=== PATIENT | female | born 1990 | race Caucasian/White ===

== ENCOUNTER → 2017-12-18 14:41 | Outpatient (CLI) | payer OTHER, SELFPAY ==
[2017-12-18 16:42] LABS: Absolute Lymphocyte Count 1.86 X10^3/ul (0.83-4.51); Absolute Neutrophil Count 6.4 X10^3/uL (2.0-7.7); Basophil# 0.03 X10^3/uL; Basophil% 0.3 % (0-1); Eosinophil# 0.14 X10^3/uL; Eosinophils% 1.5 % (0-5); Hematocrit 39.1 % (37-47); Hemoglobin 12.9 g/dl (12.0-15.0); Lymphocyte # 1.86 X10^3/ul (4.0); Lymphocyte % 20.5 % (19-41); Mean Corpuscular Hgb 27.3 pg (27.0-32.0); Mean Corpuscular Volume 82.7 fL (81-99); Mean Platelet Vol. 9.6 fl (6.2-12.0); Monocyte# 0.68 X10^3/uL; Monocyte% 7.5 % (0-10); Neutrophil # 6.35 X10^3/uL (2.7-7.7); Neutrophil % 69.9 % (47-70); POSITIVE COUNT NO; POSITIVE DIFFERENTIAL NO; POSITIVE MORPHOLOGY NO; Platelet Count 312 K/mm3 (150-450); RBC Distribution Width CV 13.5 % (11.6-14.6); RBC Distribution Width SD 39.9 fl (35.1-43.9); Red Blood Count 4.73 M/mm3 (4.2-5.4); White Blood Count 9.1 K/mm3 (4.4-11.0)
[2017-12-18 16:50] LABS: Color, Urine Yellow (Yellow); Glucose, Dipstick Normal (Normal); Ketone-Dipstick Negative (Negative); Leukocyte Esterase-Dipstick 25 /ul (Negative); Nitrite-Dipstick Negative (Negative); Occult Blood-Urine 25 /ul (Negative); Protein-Dipstick Negative (Negative); Specific Gravity, Urine 1.025 (1.002-1.030); Urine Bilirubin Dipstick Negative (Negative); Urine Clarity Cloudy (Clear); Urine Urobilinogen Normal (Normal)
[2017-12-18 16:53] LABS: Amphetamine Urine VISTA NEGATIVE (<1000 ng/mL); Barbiturate Urine VISTA NEGATIVE (< 200 ng/mL); Benzodiazepine Urine VISTA NEGATIVE (< 200 ng/mL); Cocaine Urine VISTA NEGATIVE (< 300 ng/mL); Ecstacy Urine VISTA NEGATIVE (< 500 ng/mL); Methadone Urine VISTA NEGATIVE (< 300 ng/mL); PCP Urine VISTA NEGATIVE (< 25 ng/mL); THC Urine VISTA NEGATIVE (< 50 ng/mL); Vista UDS pH Range 5
[2017-12-18 17:03] LABS: Thyroid Stim Hormone (TSH) 0.11 uIU/mL (0.358-3.74)
[2017-12-19 10:46] LABS: Free T3 3.5 pg/mL (2.18-3.98); T4 Free Direct 1.28 ng/dL (0.76-1.46)
[2017-12-19 11:33] LABS: HIV - WCH Non-Reactive (Nonreactive); Rubella IgG 477.6 IU/mL
[2017-12-20 12:25] LABS: HEPATITIS B SURFACE AG Negative (Negative); Hep C Antibodies 0.5 s/co ratio (0.0-0.9)
[2017-12-21 03:56] LABS: Prenatal RPR NONREACTIVE (NONREACTIVE)
== END ==
PROVIDERS: Visit Provider Obstetrics & Gynecology
DX: Z34.81 Encounter for supervision of other normal pregnancy, first trimester (principal)
CPT/HCPCS: 36415; 80307; 81002; 84439; 84443; 84481; 85025; 86703; 86762; 86803; 87340

== ENCOUNTER → 2018-04-23 16:20 | Outpatient (CLI) | payer OTHER, SELFPAY ==
--- NOTE | 2018-04-23 16:20 | DT_ITS ---
This patient was seen during an EMR downtime April 22, 2018 - April 29, 2018. This patient may have a combination of paper and electronic documentation or all paper documentation. All documentation is viewable within the e-chart portion of [facility] for each patient visit.
--- NOTE | 2018-04-23 16:20 | DT_ITS ---
This patient was seen during an EMR downtime April 22, 2018 - April 29, 2018. This patient may have a combination of paper and electronic documentation or all paper documentation. All documentation is viewable within the e-chart portion of [facility] for each patient visit.
[2018-04-28 18:55] LABS: Glucose Challenge Gest 1H 50g 102 mg/dL (70-140)
[2018-04-28 19:06] LABS: Hematocrit 34.7 % (37-47); Hemoglobin 11.2 g/dl (12.0-15.0); Mean Corp Hgb Conc 32.3 g/gl (32-36); Mean Corpuscular Hgb 27.3 pg (27.0-32.0); Mean Corpuscular Volume 84.4 fL (81-99); Mean Platelet Vol. 9.1 fl (6.2-12.0); Platelet Count 264 K/mm3 (150-450); RBC Distribution Width CV 13.6 % (11.6-14.6); RBC Distribution Width SD 41.8 fl (35.1-43.9); Red Blood Count 4.11 M/mm3 (4.2-5.4); Scan Indicated on CBC? Y/N NO
== END ==
PROVIDERS: Visit Provider Obstetrics & Gynecology
DX: Z34.83 Encounter for supervision of other normal pregnancy, third trimester (principal)
CPT/HCPCS: 36415; 82950; 85027

== ENCOUNTER → 2018-06-18 18:45 | Outpatient (CLI) | payer OTHER, SELFPAY ==
[2018-06-18 20:56] LABS: Group B Strep DNA By PCR Negative (Negative); Internal Control PASS; Probe Check PASS; Specimen Processing Control PASS
== END ==
PROVIDERS: Obstetrics & Gynecology; Visit Provider Obstetrics & Gynecology
DX: Z36.85 Encounter for antenatal screening for Streptococcus B (principal)
CPT/HCPCS: 87081; 87653

== ENCOUNTER 2018-06-21 16:00 | Outpatient (CLI) | payer OTHER, SELFPAY ==
[2018-06-21 16:36] VITALS: BMI 43.4
--- NOTE | 2018-06-21 23:55 | OB.TRI.NOTE ---
- Problem List (1) 36 weeks gestation of Status: Acute History of Present Illness Date of Service: 06/21/18 Was patient seen by the physician?: No Reason For Visit: R/O LABOR Final RAQUEL: 07/16/18 Gestational age: 36 Weeks and 3 Days History of Present Illness: 27yo at 36 3/7wga Allergies No Known Allergies Allergy (Verified 06/21/18 16:37) Physical Exam Vitals: avss NST - FHR Rate Baby A Baseline: 120 Variability:: Moderate Accelerations:: 15 x 15 Decelerations:: None NST Reactive:: Yes FHR Category:: Category I Uterine Activity:: 2/10 min Impression/Plan Reactive NST Dx Z34.83 d/c home
== END 2018-06-21 16:55 | disposition home or self-care (01) ==
LOC: WPOUT 16:01 → WP 16:02
PROVIDERS: Visit Provider Obstetrics & Gynecology
DX: Z34.83 Encounter for supervision of other normal pregnancy, third trimester (principal); Z3A.36 36 weeks gestation of pregnancy
CPT/HCPCS: 59025; 59050; 99218; G0378

== ENCOUNTER 2018-07-09 09:40 | Inpatient (IN) | payer OTHER, SELFPAY ==
[2018-07-02 13:20] VITALS: BMI 43.6
[2018-07-09] VITALS (18 sets, daily range): BP systolic 101–135; BP diastolic 54–80; PULSE 59–86; RESP 16–18; TEMP 36.2–36.5; O2SAT 96–100
[2018-07-09] MEDS: Lactated Ringers 1,000 ML 999 ML IV (10:45)
[2018-07-09 11:21] LABS: Absolute Lymphocyte Count 2.06 X10^3/ul (0.83-4.51); Absolute Neutrophil Count 7.6 X10^3/uL (2.0-7.7); Basophil# 0.02 X10^3/uL; Basophil% 0.2 % (0-1); Eosinophil# 0.03 X10^3/uL; Eosinophils% 0.3 % (0-5); Hematocrit 35.1 % (37-47); Hemoglobin 11.2 g/dl (12.0-15.0); Lymphocyte # 2.06 X10^3/ul (4.0); Lymphocyte % 19.6 % (19-41); Mean Corp Hgb Conc 31.9 g/gl (32-36); Mean Corpuscular Hgb 26.6 pg (27.0-32.0); Mean Corpuscular Volume 83.4 fL (81-99); Mean Platelet Vol. 9.4 fl (6.2-12.0); Monocyte# 0.79 X10^3/uL; Monocyte% 7.5 % (0-10); Neutrophil # 7.55 X10^3/uL (2.7-7.7); POSITIVE COUNT NO; POSITIVE DIFFERENTIAL NO; POSITIVE MORPHOLOGY NO; Platelet Count 229 K/mm3 (150-450); RBC Distribution Width CV 13.9 % (11.6-14.6); RBC Distribution Width SD 42.1 fl (35.1-43.9); Red Blood Count 4.21 M/mm3 (4.2-5.4); White Blood Count 10.5 K/mm3 (4.4-11.0)
[2018-07-09] MEDS: Lactated Ringers 1,000 ML 150 ML IV (11:30)
[2018-07-09 11:32] LABS: International Normalized Ratio 0.9; Partial Thromboplast Time 25.7 Seconds (24.1-36.2); Prothrombin Time (Protime)PT. 12.5 SECONDS (11.7-14.9)
[2018-07-09] MEDS: Sodium Citrate/Citric Acid 30 ML UDC PO (11:57)
--- NOTE | 2018-07-09 11:58 | PCM.DCCSEC ---
Discharge Diet: No Restrictions Discharge Activity: May not drive while taking narcotic pain medications., May Shower, May Take a Tub Bath May resume sexual activity in: 4-6 weeks Lifting Restrictions: 20 pounds Additional Activity Instructions:: Nothing in the vagina for 4-6 weeks. You may return to work/school in 6 weeks. Change Dressing in (Days):: 4 Remove Dressing in (days):: 4 Cleanse incision/area with: Soap & Water, Keep Dressing Clean & Dry Additional Instructions: If you experience any of the following, contact your healthcare provider. Bleeding that soaks a pad every hour for 2 hours Fever 100.4 or higher Unrelieved incision or abdominal pain Swelling, redness, discharge or bleeding from your incision Problems urinating (including inability to urinate or burning while urinating). Visual changes Severe headache Flu-like symptoms Pain or redness in one of both of your breasts Pain, warmth, tenderness or swelling in your legs, especially the calf area Frequent nausea and vomiting Symptoms of depression or anxiety If you experience any of the following, call 911 or go to the nearest Emergency Room. Chest pain Problems breathing Seizure activity Partial or complete paralysis of a body part, slurred speech, weakness or drooping of the face, or a sudden inability to walk or hold your balance Allergies/Adverse Reactions: Allergies No Known Allergies Allergy (Verified 06/21/18 16:37) Medications to take at Discharge Vits [Prenatabs FA] 1 tablet PO DAILY 06/21/18 Docusate Sodium [Colace] 100 mg PO BID PRN #30 cap 07/09/18 Naproxen [Naprosyn] 250 - 500 mg PO BID PRN PRN #30 tab 07/09/18 The following prescriptions were given: Naproxen [Naprosyn] 250 - 500 mg PO BID PRN PRN #30 tab PRN Reason: Mild-Mod Pain (-03/28) Docusate Sodium [Colace] 100 mg PO BID PRN #30 cap PRN Reason: Constipation Follow-Up: Call to make an appointment with your doctor for an incision check in 1-2 weeks. You will also need a 6 week post- follow up appointment. Test results from this visit will be discussed in further detail at your follow-up appointment, if applicable. Please Follow Up With: Dianne Duncan MD - [phone] When: Call to make an appointment for an incision check in 2 weeks. Primary Care Physician: Niko Gilliam [Primary Care Provider] -
[2018-07-09] MEDS: Oxytocin 30 units/NS 500 ml 30 UNITS/500 ML IV.SOLN 167 UNITS IV (12:24)
[2018-07-09] MEDS: Ketorolac 30 MG/ML Syringe IV ×3 (12:49→23:58)
[2018-07-09] MEDS: Lactated Ringers 1,000 ML 100 ML IV ×2 (14:01→23:57)
--- NOTE | 2018-07-09 14:24 | NURSING ---
Bedside shift report given to Roseanna Wheatley RN. She will assume care of patient at this time.
--- NOTE | 2018-07-09 15:45 | PLAC_PTH ---
PATIENT: CARLOS SKY LOC: [facility] U#:[id number] AGE/SX: 27/F ROOM: WP005 RE07/09/[address]: Dr. Dianne Duncan MD : 1990 BED: 1 DIS: 07/12/2018 SPEC #: [id number] RECD: 07/09/18 15:55 STATUS: CARMEN RERamón #: [id number] BRIDGET: 07/09/18 15:[address]: Dianne Duncan DEPT: SURGICAL PATHOLOGY RECD BY: Pablo Gilliam ENTERED: 07/10/18 10:01 SP TYPE: PLACENTA OTHR DR: Dr. Niko Gilliam MD Tissues: Placenta, NOS Procedures: Surgery Specimen Level V HEADER OPERATION: Primary section PRE-OP DIAGNOSIS: Breech TISSUE SUBMITTED: Placenta MICROSCOPIC DIAGNOSIS Placenta: Placental disc - third trimester placenta (380 gm). - Increased calcifications, intervillous and perivillous fibrin deposition in peripheral portion of the placenta. Membranes - no pathologic diagnosis. Umbilical cord - three blood vessels and no pathologic diagnosis. SJ:latonia 07/11/18 MICROSCOPIC DESCRIPTION Slides are reviewed. GROSS DESCRIPTION SPECIMEN: PLACENTA / CLINICAL INFORMATION: A. Weight: 2.996 kg B. Gestational Age: 39 weeks C. Sex: Female PLACENTAL WEIGHT (POST FIXATION): 380 gm PLACENTAL DIMENSIONS: 17 x 16 x 3 cm PLACENTAL SHAPE: Usual ovoid PLACENTAL WEIGHT FOR GESTATIONAL AGE: Within 10-99th percentile MEMBRANES - Present A. Insertion: Marginal B. Site of rupture from edge: At edge of placental disc C. Color of membrane: Wellington-duarte D. Abnormalities: None UMBILICAL CORD - Present A. Color: [place]-duarte B. Insertion: Slightly eccentric C. Length: 12 cm D. Diameter: 1.2 cm E. Number of vessels: Three F. Abnormalities: None PLACENTAL DISC - Present A. Color of surface: Wellington-duarte B. surface abnormalities: None C. Maternal cotyledons: Intact with minimal tears D. Attached retro placental clot: No clot E. Cut surface: Dark red and spongy F. Lesions: None G. Separate clot: Absent SECTIONS SUBMITTED: 1. Membrane roll and umbilical cord ( end notched) 2. Placental disc, and maternal surfaces 3. Placental disc, and maternal surfaces 4. Placental disc, and maternal surfaces, peripheral portion placenta AM:latonia 07/10/18 TC:5 CPT: 91238
--- NOTE | 2018-07-09 17:59 | OP.PCM_ITS ---
Operative Report Date of Procedure: 07/09/18 PROCEDURE: Primary C section. 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 Bright viable female in breech presentation. Apgars 9/9, Baby weight: 7# 2 oz There were normal appearing fallopian tubes and ovaries bilaterally. The uterus was septate, not bicornuate. PATH: Routine cord blood for typing collected. Placenta to be sent. Short umbilical cord noted. Narrative account: After the risks, benefits and alternatives of the procedure were reviewed with the patient, informed consent was obtained. The patient was taken to the Operating room with an IV running, and placed in a seated position on the operating table for placement of the spinal. Once the spinal had been administered, she was briefly frog-legged for Grissom catheter placement, and then repositioned to dorsal supine position with leftward displacement of the uterus, and prepped and draped in the usual sterile fashion. Once the spinal was deemed adequate, a Pfannenstiel skin incision was created using the knife . The incision was carried down to the rectus fascia using the knife. The fascia was nicked in the midline. The fascial incision was extended bilaterally using curved Quiles scissors. The superior aspect of the fascial incision was grasped with Marilu clamps and tented up and the underlying rectus abdominal muscles were dissected free. In a similar manner, the inferior aspect of the facial incision was grasped with Marilu clamps tented up and the underlying rectus abdominal muscles were dissected free. The rectus abdominis muscles were in the midline and the peritoneum was identified and entered by blunt dissection high in the incision. The peritoneum was stretched laterally and a bladder blade was inserted. A bladder flap was created along the lower uterine segment with Metzenbaum scissors . The uterine incision was then created using Metzenbaum scissors. The operators fingertips were used to extend the uterine incision by blunt dissection in a caudad- cephalad orientation . Clear fluid was noted at amniotomy. The breech was then delivered atraumatically through the incision up to the level of the shoulders. The arms were reduced, and the VTX delivered by maintaining nuchal flexion. The OP and nares were bulb suctioned on the abdomen. The cord clamped x two and cut. A short umbilical cord was noted. And the infant was handed off to the nurse awaiting delivery after briefly showing her to her parents. The baby had a spontaneous, vigorous cry. A segment of the umbilical cord was clamped off for later cord blood collection for typing. The placenta was then delivered. The uterus was exteriorized and cleared of clots and debris . A this septum was noted in the fundus, and a heart shaped fundus was noted. The uterine incision was repaired with 1 Vicryl in a running locked fashion. A second imbricating layer was then placed, using 1 Monocryl in running nonlocked fashion. Bovie cautery was used to treat any bleeding areas . Several interrupted stitches and figure of eight stitches were placed at the R uterine angle for bleeding at this location. Excellent hemostasis was then noted. At this point the uterus was returned to the abdominal cavity. The gutters were cleared of clots and debris and the incision at the uterus was inspected. Radha was applied along the entire incision for continued hemostasis. Excellent hemostasis was noted. The peritoneal edges were reapproximated in the midline with interrupted stitches of 1 Vicryl. Radha was applied to this layer. Excellent hemostasis was noted at the subfascial space Radha was dusted over this layer as well. The fascia was closed in a running nonlocked fashion with a Stratofix. The Subcutaneous fatty tissue was Bovie cauterized as needed for hemostasis. Radha was liberally dusted at this layer to prevent seroma formation. This layer was then reapproximated in a single layer closure of running 3-0 Vicryl to eliminate space. The skin edges were closed in a Subcuticular stitch of 4-0 Monocryl. The incision was cleansed. Cavilon, Steristrips, and Mepilex dressing were applied to the skin . The patient was then transferred to the recovery room bed in stable condition after tolerating the procedure well. Sponge, lap, needle and instrument counts correct times two. Medications given preop and intraoperatively included: Ancef given wafer production worker to the operating room. The patient also received Pitocin given IV after cord clamp , and Toradol 30 mg IV times one. For a complete listing of medications given preop and intraoperatively, please see the anesthesia record.
[2018-07-10] VITALS (11 sets, daily range): BP systolic 110–137; BP diastolic 54–77; PULSE 69–97; RESP 16–18; TEMP 36.3–36.8; O2SAT 96–100
[2018-07-10 05:10] LABS: Hematocrit 29.6 % (37-47); Hemoglobin 9.5 g/dl (12.0-15.0); Mean Corp Hgb Conc 32.1 g/gl (32-36); Mean Corpuscular Hgb 27.1 pg (27.0-32.0); Mean Corpuscular Volume 84.3 fL (81-99); Mean Platelet Vol. 9.1 fl (6.2-12.0); Platelet Count 196 K/mm3 (150-450); RBC Distribution Width CV 13.9 % (11.6-14.6); RBC Distribution Width SD 41.1 fl (35.1-43.9); Red Blood Count 3.51 M/mm3 (4.2-5.4); White Blood Count 12.3 K/mm3 (4.4-11.0)
[2018-07-10 05:39] LABS: Scan Indicated on CBC? Y/N NO
[2018-07-10] MEDS: Ketorolac 30 MG/ML Syringe IV ×3 (06:01→18:12)
--- NOTE | 2018-07-10 08:11 | PCM.PN.OB ---
Subjective: POD#1 Primary C/S 39 wk Breech, Septate uterus Doing well. breast feeding and using nipple robb for flat nipples. Pain control adequate No concerns voiced. Objective: Lying in bed, NAD. holding baby skin to skin on couch. Grissom with copious clear yellow urine noted. - Physical Exam General: Alert, Oriented x3, Cooperative, No apparent distress HEENT: Atraumatic Neck: Supple Abdomen: Soft - Fundus firm, tender c/w postop status, approx 1 cm inferior to umbilicus Skin: Incision - CDI. Mepilex dry and intact. no shadow drainage noted. Neurological: Cranial nerves II-XII grossly intact Psych/Mental Status: Normal Affect Vital Signs Temp Pulse Resp BP Pulse Ox 97.9 F 80 16 120/57 L 98 07/10/18 04:30 07/10/18 06:30 07/10/18 06:30 07/10/18 04:30 07/10/18 06:30 Oxygen Delivery Method Room Air Weight: 97.976 kg Body Mass Index (BMI) 43.6 Intake and Output for Last 24 Hours 07/08/18 07/09/18 07/10/18 23:59 23:59 23:59 Intake Total 3662 / 3662 1279 / 1279 Output Total 900 / 900 1600 / 1600 Balance 2762 / 2762 -321 / -321 Laboratory Tests Past 24 Hrs 07/09/18 07/09/18 07/09/18 11:05 11:05 11:15 WBC 10.5 RBC 4.21 Hgb 11.2 L Hct 35.1 L MCV 83.4 MCH 26.6 L MCHC 31.9 L RDW 13.9 RDW Differential 42.1 Plt Count 229 MPV 9.4 Immature Gran % (Auto) 0.400 Neut % (Auto) 72.0 H Lymph % (Auto) 19.6 [place] % (Auto) 7.5 Eos % (Auto) 0.3 Baso % (Auto) 0.2 Absolute Neuts (auto) 7.6 Absolute Lymphs (auto) 2.06 Total Counted Not Reportable PT 12.5 INR 0.9 APTT 25.7 Blood Type O POSITIVE Antibody Screen NEGATIVE 07/10/18 04:56 WBC 12.3 H RBC 3.51 L Hgb 9.5 L Hct 29.6 L MCV 84.3 MCH 27.1 MCHC 32.1 RDW 13.9 RDW Differential 41.1 Plt Count 196 MPV 9.1 Immature Gran % (Auto) Neut % (Auto) Lymph % (Auto) [place] % (Auto) Eos % (Auto) Baso % (Auto) Absolute Neuts (auto) Absolute Lymphs (auto) Total Counted PT INR APTT Blood Type Antibody Screen Medical Necessity - Tobacco Use Smoking Status: Never smoker Assessment/Plan 39 wk POD #1 C/S breech presentation, Septate uterus / partial bicornuate Stable postop Inc diet and activity as tolerated. S/L IV for continue Toradol today. Begin po meds. May shower. D/C Grissom for voiding trial. support prn. continue routine care #2 Postop acute blood loss anemia VSS Ferrous gluconate bid
[2018-07-10] MEDS: 0.9% Saline Lock 10 ML Syringe IV ×3 (09:40→18:12)
[2018-07-10] MEDS: Prenatal Vits Tablet 1 TABLET PO (12:23)
[2018-07-10] MEDS: Ferrous Gluconate 325 MG Tablet PO (17:05)
[2018-07-11] MEDS: Ketorolac 30 MG/ML Syringe IV ×2 (00:04→05:49)
[2018-07-11] MEDS: 0.9% Saline Lock 10 ML Syringe IV ×2 (00:05→05:49)
[2018-07-11 02:00] VITALS: PULSE 84; RESP 17; TEMP 37.2
[2018-07-11] MEDS: Acetaminophen 500 MG Tablet 1000 MG PO ×2 (02:59→15:27)
[2018-07-11 08:00] VITALS: BP 119/81; PULSE 82; RESP 18; TEMP 36.6; O2SAT 97
--- NOTE | 2018-07-11 08:16 | PCM.PN.OB ---
Subjective: POD#2 primary C/S BREECH 39 wk, Uterine malformation Doing well. milk is in and able to pump some. Baby nursing. Plans to stay today. support prn. (flat nipples, and baby not latching well yet ) Minimal bleeding. Pain control adequate and able to rest well last night. - Physical Exam General: Alert, Oriented x3, Cooperative, No apparent distress HEENT: Atraumatic Neck: Supple Abdomen: Soft - Fundus firm NT at umbilicus Skin: Incision - CDI. Mepilex dressing in place, no shadow drainage Neurological: Cranial nerves II-XII grossly intact Psych/Mental Status: Normal Affect Vital Signs Temp Pulse Resp BP Pulse Ox 98.9 F 84 17 120/77 97 07/11/18 02:00 07/11/18 02:00 07/11/18 02:00 07/10/18 20:00 07/10/18 18:00 Oxygen Delivery Method Room Air Weight: 97.976 kg Body Mass Index (BMI) 43.6 Intake and Output for Last 24 Hours 07/09/18 07/10/18 07/11/18 23:59 23:59 23:59 Intake Total 3662 / 3662 1642 / 1642 Output Total 900 / 900 3700 / 3700 Balance 2762 / 2762 -2057 / -2057 Medical Necessity - Tobacco Use Smoking Status: Never smoker Assessment/Plan 39 wk POD #2 C/S breech presentation, Septate uterus / partial bicornuate Stable postop support prn. (flat nipples, and baby not latching well yet... milk in) continue routine care #2 Postop acute blood loss anemia VSS Ferrous gluconate bid
[2018-07-11] MEDS: Ferrous Gluconate 325 MG Tablet PO ×2 (09:19→17:21)
[2018-07-11] MEDS: Naproxen 250 MG Tablet PO ×2 (09:19→21:27)
[2018-07-11] MEDS: Prenatal Vits Tablet 1 TABLET PO (09:19)
[2018-07-11 14:13] VITALS: BP 118/79; PULSE 80; RESP 16; TEMP 36.7; O2SAT 96
[2018-07-11 15:25] LABS: Pathology Specimen OB SEE PATHOLOGY REPORT
[2018-07-11 20:00] VITALS: BP 127/89; PULSE 76; RESP 18; TEMP 36.8; O2SAT 98
--- NOTE | 2018-07-11 21:22 | NURSING ---
Report given to Juanita Mcgrath RN. She will assume care at this time.
[2018-07-12] MEDS: oxyCODONE 5 MG Tablet PO ×2 (00:17→12:10)
[2018-07-12 02:30] VITALS: BP 117/87; PULSE 87; RESP 18; TEMP 36.3
[2018-07-12 07:16] VITALS: BP 133/87; PULSE 95; RESP 18; TEMP 36.8; O2SAT 95
--- NOTE | 2018-07-12 07:16 | PCM.PN.OB ---
Subjective: POD#3 Primary C/S Breech. Doing much better. Breasts getting firm upper outer quad. Baby nursing better. Asking when to pump. Pain control adequate. Objective: Sitting up in chair holding sleeping baby - Physical Exam General: Alert, Oriented x3, Cooperative, No apparent distress HEENT: Atraumatic, EOMI Neck: Supple Neurological: Cranial nerves II-XII grossly intact Psych/Mental Status: Normal Affect Vital Signs Temp Pulse Resp BP Pulse Ox 97.3 F L 87 18 117/87 H 98 07/12/18 02:30 07/12/18 02:30 07/12/18 02:30 07/12/18 02:30 07/11/18 20:00 Oxygen Delivery Method Room Air Weight: 97.976 kg Body Mass Index (BMI) 43.6 Intake and Output for Last 24 Hours 07/10/18 07/11/18 07/12/18 23:59 23:59 23:59 Intake Total 1642 / 1642 Output Total 3700 / 3700 Balance -2057 / -2057 Medical Necessity - Tobacco Use Smoking Status: Never smoker Assessment/Plan All Active Problems 36 weeks gestation of (Acute) 39 wk POD #3 C/S breech presentation, Septate uterus / partial bicornuate Stable postop Nursing well. Milk in. Dischg home today. RTO in 2 wk for postop check. Reviewed incision care. #2 Postop acute blood loss anemia VSS Ferrous gluconate bid for one month
[2018-07-12 08:00] VITALS: BP 124/80; PULSE 80; RESP 18; TEMP 37; O2SAT 97
[2018-07-12] MEDS: Ferrous Gluconate 325 MG Tablet PO (09:23)
[2018-07-12] MEDS: Prenatal Vits Tablet 1 TABLET PO (12:11)
--- NOTE | 2018-07-12 12:50 | PCM.DC.SUM ---
Discharge Date and Diagnosis Date of Admission: 07/09/18 Date of Discharge: 07/12/18 Hospital Course and Treatment Operations: - - Primary C section for breech, uterine malformation. Summary of Care Provided: The patient is a 27 year old female at 39 wk EGA with Breech presentation and bicornuate uterus presents for planned primary C/S on 07/09/18 . Procedure uncomplicated. Delivered a 7# 3 oz female Postoperative course complicated by acute blood loss anemia Started on iron bid for this. Tolerating diet well. Pain control adequate. Voiding well Nursing and milk is in. Requests dischg to home on POD#3. RTO in 2 wk for postop incision check, prn sooner. Discharge Diet: No Restrictions Discharge Activity: May not drive while taking narcotic pain medications., May Shower, May Take a Tub Bath May resume sexual activity in: 4-6 weeks Additional Activity Instructions:: Nothing in the vagina for 4-6 weeks. You may return to work/school in 6 weeks. Change Dressing in (Days):: 4 Remove Dressing in (days):: 4 Cleanse incision/area with: Soap & Water, Keep Dressing Clean & Dry Home Medications: Medications to take at Discharge Vits [Prenatabs FA] 1 tablet PO DAILY 06/21/18 Docusate Sodium [Colace] 100 mg PO BID PRN #30 cap 07/09/18 Naproxen [Naprosyn] 250 - 500 mg PO BID PRN PRN #30 tab 07/09/18 Oxycodone [Oxyir] 5 - 10 mg PO Q6H PRN PRN 7 Days #20 tablet 07/10/18 Following Prescrptions Were Given to Patient: Oxycodone [Oxyir] 5 - 10 mg PO Q6H PRN PRN 7 Days #20 tablet PRN Reason: Mod-Severe Pain (4-10/10) Naproxen [Naprosyn] 250 - 500 mg PO BID PRN PRN #30 tab PRN Reason: Mild-Mod Pain (1-5/10) Docusate Sodium [Colace] 100 mg PO BID PRN #30 cap PRN Reason: Constipation Primary Care Physician: Niko Gilliam [Primary Care Provider] - Please Follow Up With: Dianne Duncan MD When: Call to make an appointment for an incision check in 2 weeks. Please Follow Up With: [facility] Medical Necessity - Tobacco Use Smoking Status: Never smoker Meaningful Use Info Meaningful Use Diagnoses (Choose all that apply): None applicable
== END 2018-07-12 13:55 | disposition home or self-care (01) | DRG 765 ==
PROVIDERS: Admitting Provider Obstetrics & Gynecology; Family Provider Family Medicine; PCP Family Medicine; Visit Provider Obstetrics & Gynecology
PROC: 10D00Z1 Extraction of Products of Conception, Low, Open Approach (ICD-10-PCS; CPT 59514; principal; 2018-07-09 11:45)
DX: O32.1XX0 Maternal care for breech presentation, not applicable or unspecified (principal); D62 Acute posthemorrhagic anemia; Z37.0 Single live birth; Z3A.39 39 weeks gestation of pregnancy; O34.03 Maternal care for unspecified congenital malformation of uterus, third trimester; Q51.2 Other doubling of uterus; O69.3XX0 Labor and delivery complicated by short cord, not applicable or unspecified; O99.02 Anemia complicating childbirth
CPT/HCPCS: 85025; 85027; 85610; 85730; 86850; 86900; 88307; 99218; J7120; A4216; G0378; J2405

== ENCOUNTER 2018-07-16 09:50 | Outpatient (CLI) | payer OTHER, SELFPAY | END 2018-07-16 11:00 | disposition home or self-care (01) | LOC: WPOUT 09:53 → WP 09:54 | PROVIDERS: Family Provider Family Medicine; PCP Family Medicine; Visit Provider Obstetrics & Gynecology | DX: R63.3 Feeding difficulties (principal) | CPT/HCPCS: 96152 ==

== ENCOUNTER → 2019-06-02 | Outpatient (CLI) | payer OTHER, SELFPAY ==
[2018-07-02 13:20] VITALS: BMI 43.6
[2019-06-02 20:26] LABS: Chlamydia Trachomatis by PCR Negative (Negative); Neisserai gonorrhoeae by PCR Negative (Negative); Probe Check PASS; Sample Adequacy Control PASS; Specimen Processing Control PASS
== END | disposition home or self-care (01) ==
PROVIDERS: Family Provider Family Medicine; PCP Family Medicine; Referring Provider Obstetrics & Gynecology; Visit Provider Obstetrics & Gynecology
DX: Z12.4 Encounter for screening for malignant neoplasm of cervix (principal); Z11.3 Encounter for screening for infections with a predominantly sexual mode of transmission
CPT/HCPCS: 87491; 87591

== ENCOUNTER → 2019-06-26 | Outpatient (CLI) | payer OTHER, SELFPAY ==
[2019-06-26 12:12] LABS: Color, Urine Yellow (Yellow); Glucose, Dipstick Normal (Normal); Ketone-Dipstick Negative (Negative); Leukocyte Esterase-Dipstick Negative /ul (Negative); Nitrite-Dipstick Negative (Negative); Occult Blood-Urine 10 /ul (Negative); Protein-Dipstick Negative (Negative); Specific Gravity, Urine 1.015 (1.002-1.030); Urine Bilirubin Dipstick Negative (Negative); Urine Clarity Clear (Clear); Urine Urobilinogen Normal (Normal)
[2019-06-26 12:35] LABS: Thyroid Stim Hormone (TSH) 0.08 uIU/mL (0.358-3.74)
[2019-06-26 13:17] LABS: HIV - WCH Non-Reactive (Nonreactive); Hepatitis B Surface Antigen Non-Reactive (Nonreactive); Rubella IgG > 500.0 IU/mL
[2019-06-26 13:26] LABS: Hepatitis C Antibody REACTIVE (Nonreactive)
[2019-06-27 04:46] LABS: Prenatal RPR NONREACTIVE (NONREACTIVE)
== END | disposition home or self-care (01) ==
LOC: WOBLAB 09:51
PROVIDERS: Family Provider Family Medicine; PCP Family Medicine; Visit Provider Obstetrics & Gynecology
DX: Z34.81 Encounter for supervision of other normal pregnancy, first trimester (principal)
CPT/HCPCS: 36415; 81002; 84443; 86703; 86762; 86803; 87340

== ENCOUNTER → 2019-06-27 | Outpatient (CLI) | payer OTHER, SELFPAY ==
[2019-06-27 13:39] LABS: Absolute Lymphocyte Count 2.42 X10^3/uL (0.83-4.51); Absolute Neutrophil Count 5.3 X10^3/uL (2.0-7.7); Basophil# 0.05 X10^3/uL; Basophil% 0.6 % (0-1); Eosinophil# 0.08 X10^3/uL; Eosinophils% 0.9 % (0-5); Hematocrit 40.2 % (37-47); Hemoglobin 12.9 g/dL (12.0-15.0); Lymphocyte # 2.42 X10^3/ul (4.0); Lymphocyte % 28.5 % (19-41); Mean Corp Hgb Conc 32.1 g/dL (32-36); Mean Corpuscular Hgb 26.4 pg (27.0-32.0); Mean Corpuscular Volume 82.4 fL (81-99); Mean Platelet Vol. 9.3 fl (6.2-12.0); Monocyte# 0.59 X10^3/uL; Monocyte% 6.9 % (0-10); NRBC Flagged by Analyzer 0 % (0-5); Neutrophil # 5.32 X10^3/uL (2.7-7.7); Neutrophil % 62.7 % (47-70); Platelet Count 267 K/mm3 (150-450); RBC Distribution Width CV 14.1 % (11.6-14.6); RBC Distribution Width SD 42.1 fl (35.1-43.9); Red Blood Count 4.88 M/mm3 (4.2-5.4); White Blood Count 8.5 K/mm3 (4.4-11.0)
[2019-06-27 14:08] LABS: Free T3 3.4 pg/mL (2.18-3.98); T4 Free Direct 1.21 ng/dL (0.76-1.46)
[2019-06-29 03:05] LABS: HCV Quant. RNA PCR HCV Not Detected IU/mL (.)
== END | disposition home or self-care (01) ==
LOC: WOBLAB 11:38
PROVIDERS: Visit Provider Obstetrics & Gynecology
DX: R79.89 Other specified abnormal findings of blood chemistry (principal)
CPT/HCPCS: 84439; 84481; 85025; 87522

== ENCOUNTER → 2019-10-28 15:54 | Outpatient (CLI) | payer OTHER, SELFPAY ==
[2018-07-02 13:20] VITALS: BMI 43.6
[2019-10-28 17:23] LABS: Hematocrit 36.2 % (37-47); Hemoglobin 11.5 g/dL (12.0-15.0); Mean Corp Hgb Conc 31.8 g/dL (32-36); Mean Corpuscular Hgb 26.5 pg (27.0-32.0); Mean Corpuscular Volume 83.4 fL (81-99); Mean Platelet Vol. 9.5 fl (6.2-12.0); Platelet Count 248 K/mm3 (150-450); RBC Distribution Width CV 13.8 % (11.6-14.6); RBC Distribution Width SD 42.3 fl (35.1-43.9); Red Blood Count 4.34 M/mm3 (4.2-5.4); White Blood Count 10.5 K/mm3 (4.4-11.0)
[2019-10-28 17:33] LABS: Glucose Challenge Gest 1H 50g 103 mg/dL (70-140)
== END ==
PROVIDERS: Visit Provider Obstetrics & Gynecology
DX: Z34.82 Encounter for supervision of other normal pregnancy, second trimester (principal)
CPT/HCPCS: 36415; 82950; 85027

== ENCOUNTER 2019-11-13 10:49 | Emergency (ER) | payer OTHER, SELFPAY ==
[2019-11-13 10:50] VITALS: BP 137/77; PULSE 113; RESP 16; TEMP 37.2; BMI 41.8
--- NOTE | 2019-11-13 11:16 | ED.DCSUM_ITS ---
- ER Visit Summary Date of Service: 11/13/19 Chief Complaint: Nausea, vomiting and diarrhea History of Present Illness: The patient is a 28 F currently 30 weeks due date is January 22 and she has a scheduled on January 16. Patient states that yesterday she started having nausea, vomiting and diarrhea. No fever. No chills. Multiple family members with similar symptoms or have just gotten over similar illness. She denies any dysuria. Physical Examination: Vital signs are stable. She is afebrile. H EENT exam unremarkable. Neck nontender. Lungs clear to auscultation bilaterally. Heart regular rhythm rate of 110 no murmur. Abdomen is soft. Mild epigastric tenderness. No rebound or guarding. No rigidity. No peritoneal signs. No Craig sign or McBurney's point tenderness. Gravid uterus. Extremities moves all 4. Calves nontender. Neurologically she is awake alert with no focal Test Results: CBC white count of 10. Hemoglobin 10 consistent with anemia of . Chemistries normal normal creatinine gap. Liver enzymes normal. Lipase normal. Labs are consistent with my assumption of viral gastroenteritis. Heart tones are 148. Emergency Department Course and Treatment: Patient treated with IV fluids and Zofran. P.o. fluid challenge. Screening labs are being obtained. Epigastric and right upper quadrant discomfort which I think this is all viral gastroenteritis like multiple family members have due to her will ensure that there is no pancreatitis or gallbladder disease. Treatment Plan: Repeat exam doing well at 1515 will be discharged home. Zofran as needed for nausea. Disposition: Discharge Impression: Nausea, vomiting and diarrhea secondary to viral gastroenteritis at 30 weeks This note was generated with [employer] dictation software. It may contain incorrect words, spelling, and punctuation that were not noted in review of the chart prior to signing
[2019-11-13] MEDS: 0.9% Normal Saline 1,000 ML 1000 ML IV (11:22)
[2019-11-13] MEDS: Ondansetron 4 MG/2 ML Vial IV (11:23)
[2019-11-13 11:39] LABS: Absolute Lymphocyte Count 0.65 X10^3/uL (0.83-4.51); Basophil# 0.02 X10^3/uL; Basophil% 0.2 % (0-1); Eosinophil# 0.01 X10^3/uL; Eosinophils% 0.1 % (0-5); Hematocrit 34.2 % (37-47); Hemoglobin 10.9 g/dL (12.0-15.0); Lymphocyte # 0.65 X10^3/ul (4.0); Lymphocyte % 6.4 % (19-41); Mean Corp Hgb Conc 31.9 g/dL (32-36); Mean Corpuscular Hgb 26.8 pg (27.0-32.0); Mean Platelet Vol. 9.2 fl (6.2-12.0); Monocyte% 3.9 % (0-10); NRBC Flagged by Analyzer 0 % (0-5); Neutrophil # 8.96 X10^3/uL (2.7-7.7); Neutrophil % 87.6 % (47-70); Platelet Count 191 K/mm3 (150-450); RBC Distribution Width CV 14.4 % (11.6-14.6); RBC Distribution Width SD 42.8 fl (35.1-43.9); Red Blood Count 4.07 M/mm3 (4.2-5.4); White Blood Count 10.2 K/mm3 (4.4-11.0)
[2019-11-13 12:35] LABS: BUN 7 mg/dL (7-18); Creatinine, Serum 0.59 mg/dL (0.55-1.02); Glucose 89 mg/dL (74-106)
[2019-11-13 12:36] LABS: AST(SGOT) 19 U/L (15-37); Alanine Aminotransfer ALT/SGPT 12 U/L (13-56); Albumin, Serum 2.5 g/dL (3.2-5.0); Alkaline Phosphatase 62 U/L (45-117); Anion Gap 8 (5-15); BUN/Creat Ratio 11.9 RATIO (10-20); Bilirubin, Direct 0.11 mg/dL (0.00-0.30); Calcium,Total 7.5 mg/dL (8.5-10.1); Chloride 108 mmol/L (98-107); EST Glomerular Filtration Rate 129 mL/min (>60); Est Glom Filt Rate - Afr Amer 156 mL/min (>60); Globulin 3.5 g/dL (2.2-4.2); Lipase 76 U/L (73-393); Potassium 3.9 mmol/L (3.5-5.1); Sodium Level 140 mmol/L (136-145)
[2019-11-13 13:00] VITALS: BP 132/77; PULSE 93; RESP 16; O2SAT 97
--- NOTE | 2019-11-13 15:17 | DCINST.ED_ITS ---
ED Disposition - Plan for ED Patient: Disposition: Home or Assisted Living Instructions: GASTROENTERITIS, Viral (7y-Adult) Prescriptions: Ondansetron [Zofran Odt] 4 mg PO Q8H PRN PRN #7 tab PRN Reason: Nausea Prescription Printed Referrals: Niko Gilliam MD [Primary Care Provider] - As Needed Dianne Duncan MD [STAFF PHYSICIAN] - As Needed Additional Instructions: Zofran as needed for nausea. Plenty of fluids and rest. Increase diet slowly as tolerated. Follow-up with your COMPUTER NUMERIC CONTROL SETTER as needed. Return to ER if feeling worse.
[2019-11-13 15:22] VITALS: BP 133/59; PULSE 74; RESP 16; O2SAT 99
== END 2019-11-13 15:23 | disposition home or self-care (01) ==
PROVIDERS: Emergency Provider Emergency Medicine; Family Provider Family Medicine; PCP Family Medicine
DX: O98.513 Other viral diseases complicating pregnancy, third trimester (principal); A08.4 Viral intestinal infection, unspecified; Z3A.30 30 weeks gestation of pregnancy
CPT/HCPCS: 80048; 80076; 83690; 85025; 96361; 96374; 99283; J7030; A4216; J2405

== ENCOUNTER → 2019-12-29 | Outpatient (CLI) | payer OTHER, SELFPAY | END | disposition home or self-care (01) | PROVIDERS: PCP Family Medicine; Referring Provider Advanced Practice Midwife; Visit Provider Advanced Practice Midwife | DX: Z36.85 Encounter for antenatal screening for Streptococcus B (principal) | CPT/HCPCS: 87081 ==

== ENCOUNTER 2020-01-14 22:57 | Outpatient (CLI) | payer OTHER, SELFPAY ==
[2020-01-14 23:05] VITALS: BP 131/80; PULSE 99; TEMP 98; O2SAT 96
[2020-01-14 23:06] VITALS: PULSE 99; O2SAT 96
[2020-01-14 23:26] VITALS: BMI 45.9
[2020-01-15 00:06] LABS: Hematocrit 34.1 % (37-47); Mean Corp Hgb Conc 32.3 g/dL (32-36); Mean Corpuscular Hgb 26.6 pg (27.0-32.0); Mean Corpuscular Volume 82.4 fL (81-99); Mean Platelet Vol. 9.9 fl (6.2-12.0); Platelet Count 223 K/mm3 (150-450); RBC Distribution Width CV 13.7 % (11.6-14.6); RBC Distribution Width SD 40.9 fl (35.1-43.9); Red Blood Count 4.14 M/mm3 (4.2-5.4); White Blood Count 11.6 K/mm3 (4.4-11.0)
[2020-01-15 00:09] VITALS: BP 131/82; PULSE 81
[2020-01-15 00:11] LABS: International Normalized Ratio 0.9; Prothrombin Time (Protime)PT. 12.4 SECONDS (11.7-14.9)
[2020-01-15 00:12] LABS: Partial Thromboplast Time 25.6 Seconds (24.1-36.2)
[2020-01-15 00:13] LABS: AST(SGOT) 8 U/L (15-37); Alanine Aminotransfer ALT/SGPT 13 U/L (13-56); Creatinine, Serum 0.57 mg/dL (0.55-1.02); EST Glomerular Filtration Rate 134 mL/min (>60); Est Glom Filt Rate - Afr Amer 162 mL/min (>60); Estimated Creatinine Clearance 241.25 ml/min; Uric Acid 4.5 mg/dL (2.6-6.0)
[2020-01-15 00:21] LABS: Protein, Urine (Random) 13.8 mg/dL (<11.9); Protein:Creat Ratio 325 mg/g CRE (0-200)
--- NOTE | 2020-01-15 08:47 | OB.TRI.NOTE ---
- Problem List (1) Decreased movement Status: Acute Qualifiers: Fetus number: single or unspecified fetus Trimester: third trimester Qualified Code(s): O36.8130 - Decreased movements, third trimester, not applicable or unspecified History of Present Illness Date of Service: 01/14/20 Was patient seen by the physician?: No Reason For Visit: DECREASED MOVEMENT Date of Service: 01/14/20 Final RAQUEL: 01/23/20 Gestational age: 38 Weeks and 6 Days History of Present Illness: Has felt decreased movement for the last several hours and came to be evaluated. Allergies No Known Allergies Allergy (Verified 01/14/20 23:21) Laboratory Studies: Laboratory Tests 01/14/20 01/14/20 01/14/20 Range/Units 23:58 23:50 23:50 WBC (4.4-11.0) K/mm3 RBC (4.2-5.4) M/mm3 Hgb (12.0-15.0) g/dL Hct (37-47) % MCV (81-99) fL MCH (27.0-32.0) pg MCHC (32-36) g/dL RDW Std Deviation (35.1-43.9) fl RDW Coeff of Amor (11.6-14.6) % Plt Count (150-450) K/mm3 MPV (6.2-12.0) fl PT 12.4 (11.7-14.9) SECONDS INR 0.9 APTT 25.6 (24.1-36.2) Seconds Creatinine 0.57 (0.55-1.02) mg/dL Estim Creat Clear Calc 241.25 ml/min Est GFR (MDRD) Af Amer 162 (>60) mL/min Est GFR (MDRD) Non-Af 134 (>60) mL/min Uric Acid 4.5 (2.6-6.0) mg/dL AST 8 L (15-37) U/L ALT 13 (13-56) U/L U Random Total Protein 13.8 H (<11.9) mg/dL Urine Creatinine 42.40 (NO RANGE EST.) mg/dL Protein/Creatinin Ratio 325 H (0-200) mg/g CRE 01/14/20 Range/Units 23:50 WBC 11.6 H (4.4-11.0) K/mm3 RBC 4.14 L (4.2-5.4) M/mm3 Hgb 11.0 L (12.0-15.0) g/dL Hct 34.1 L (37-47) % MCV 82.4 (81-99) fL MCH 26.6 L (27.0-32.0) pg MCHC 32.3 (32-36) g/dL RDW Std Deviation 40.9 (35.1-43.9) fl RDW Coeff of Amor 13.7 (11.6-14.6) % Plt Count 223 (150-450) K/mm3 MPV 9.9 (6.2-12.0) fl PT (11.7-14.9) SECONDS INR APTT (24.1-36.2) Seconds Creatinine (0.55-1.02) mg/dL Estim Creat Clear Calc ml/min Est GFR (MDRD) Af Amer (>60) mL/min Est GFR (MDRD) Non-Af (>60) mL/min Uric Acid (2.6-6.0) mg/dL AST (15-37) U/L ALT (13-56) U/L U Random Total Protein (<11.9) mg/dL Urine Creatinine (NO RANGE EST.) mg/dL Protein/Creatinin Ratio (0-200) mg/g CRE Review of Systems Constitutional: Denies: Chills, Fever, Weight Change HEENT: Denies: Head Aches, Sinus Congestion, Sinus Drainage Cardiovascular: Denies: Chest Pain, Palpitations Respiratory: Denies: Cough, Shortness of breath at rest, Sputum production Gastrointestinal: Denies: Abdominal Pain, Nausea, Vomiting Genitourinary: Denies: Dysuria Musculoskeletal: Denies: Joint Pain, Joint Tenderness Skin: Denies: Rash, Wounds Neurological: Denies: Numbness, Tingling, Focal weakness Psychiatric: Denies: Anxiety, Depression, Homicidal Ideations, Suicidal Ideations Hematologic/ Lymphatic: Denies: Easy Bruising, Easy Bleeding Physical Exam Vitals: VSS BP 131/80, P 93, O2 96% afebrile General: Alert, Oriented x3, No apparent distress HEENT: Atraumatic, Normocephalic. Negative for: Thyromegaly, Lymphadenopathy Cardiovascular: Regular rate, Regular Rhythm Lungs: Clear to auscultation Abdomen: Bowel Sounds Present, Gravid Extremities:: No edema - edema +2 Neurological: Deep Tendon Reflexes 2+/4 and Symmetrical, Neuro grossly intact, Clonus - 2-3 seconds GLUED WOOD TESTER: Normal external genitalia. Negative for: Vulvar lesions Estimated gestational size: Appropriate for gestational size NST - FHR Rate Baby A Baseline: 130 Variability:: Moderate Accelerations:: 15 x 15 Decelerations:: None NST Reactive:: Yes FHR Category:: Category I Uterine Activity:: Q7-10 minutes Impression/Plan A: Here at 38w5d gestation for decreased movement NST reactive, category 1 with FHR baseline 130, +accels, -decels, UC 7-10 minutes Once here and with oral hydration, lots of movements felt Pre-E labs WNL with exception of urine p/c ratio 325 P: Send home on rest To call if decreased movement again S/S of pre-E reviewed and will call with headache, blurred vision, RUQ pain, increased bilateral lower extremity edema or hand/facial edema planned for Sunday Discussed with Dr. Watson 01/15/20
== END 2020-01-15 00:35 | disposition home or self-care (01) ==
LOC: WPOUT 23:08 → OBT 23:09
PROVIDERS: PCP Family Medicine; Visit Provider Obstetrics & Gynecology
DX: O36.8130 Decreased fetal movements, third trimester, not applicable or unspecified (principal); Z3A.38 38 weeks gestation of pregnancy
CPT/HCPCS: 36415; 59025; 59050; 82565; 82570; 84156; 84450; 84460; 84550; 85027; 85610; 85730; 99218; G0378

== ENCOUNTER 2020-01-16 05:27 | Inpatient (IN) | payer OTHER, SELFPAY ==
[2020-01-14 23:05] VITALS: PULSE 99; TEMP 98; O2SAT 96
[2020-01-16] VITALS (23 sets, daily range): BP systolic 104–147; BP diastolic 49–83; PULSE 63–95; RESP 15–18; TEMP 36.2–37.1; O2SAT 3–99; BMI 45.8
[2020-01-16] MEDS: Lactated Ringers 1,000 ML 999 ML IV (06:10)
[2020-01-16 06:44] LABS: Absolute Lymphocyte Count 2.47 X10^3/uL (0.83-4.51); Absolute Neutrophil Count 7.1 X10^3/uL (2.0-7.7); Basophil# 0.05 X10^3/uL; Basophil% 0.5 % (0-1); Eosinophil# 0.12 X10^3/uL; Eosinophils% 1.1 % (0-5); Hematocrit 36.6 % (37-47); Hemoglobin 11.7 g/dL (12.0-15.0); Lymphocyte # 2.47 X10^3/ul (4.0); Lymphocyte % 23.4 % (19-41); Mean Corpuscular Hgb 26.4 pg (27.0-32.0); Mean Corpuscular Volume 82.6 fL (81-99); Mean Platelet Vol. 10.6 fl (6.2-12.0); Monocyte# 0.72 X10^3/uL; Monocyte% 6.8 % (0-10); NRBC Flagged by Analyzer 0 % (0-5); Neutrophil # 7.09 X10^3/uL (2.7-7.7); Neutrophil % 67.3 % (47-70); POSITIVE COUNT YES; Platelet Count 196 K/mm3 (150-450); RBC Distribution Width CV 13.8 % (11.6-14.6); RBC Distribution Width SD 40.9 fl (35.1-43.9); Red Blood Count 4.43 M/mm3 (4.2-5.4); White Blood Count 10.6 K/mm3 (4.4-11.0)
[2020-01-16 06:45] LABS: Differential Indicated SCAN CRITERIA MET
[2020-01-16 07:04] LABS: Differential Comment SCANNED
[2020-01-16] MEDS: Sodium Citrate/Citric Acid 30 ML UDC PO (07:04)
[2020-01-16] MEDS: Lactated Ringers 1,000 ML 150 ML IV (07:08)
[2020-01-16] MEDS: Cefazolin 2 GM in 0.9% Normal Saline 100 ML IV (07:30)
--- NOTE | 2020-01-16 07:33 | HP.PCM_ITS ---
- Problem List (1) 39 weeks gestation of Status: Acute History Date of Admission: 01/16/20 Final RAQUEL: 01/23/20 Final RAQUEL Source: US <20 weeks Gestational age: 39 Weeks and 0 Days History of this : This is a 29 year-old, G [2], P [1], at 39 weeks gestational age with hx prior section presenting for scheduled repeat. Medical History: Medical History (Last Updated 01/16/20 @ 07:[address] Sadaf Watson MD) Orthopedic hardware present Z97.8 L. arm pin Surgical History: Surgical History (Last Updated 01/16/20 @ 07:[address] Sadaf Watson MD) Previous section Z98.891 06/2018 [place] teeth extracted K08.409 Allergies No Known Allergies Allergy (Verified 01/16/20 06:30) Home Medications: Home Medications Vits [Prenatabs FA ] 1 tablet PO DAILY 06/21/18 Doxylamine Succinate [Unisom Sleep Aid] 25 mg PO QHS 01/14/20 Esomeprazole Mag Trihydrate [Nexium] 20 mg PO DAILY 01/15/20 Acetaminophen [Tylenol] 1,000 mg PO Q8H PRN tab 01/18/20 Ibuprofen [Motrin] 600 mg PO Q6H PRN PRN tab 01/18/20 Smoking Status: Never smoker Alcohol: None Number of Fetus(es): 1 NST - FHR Rate Baby A Baseline: 142 bpm History Past Pregnancies: Past Pregnancies Delivery Date Name GA/ Weeks Outcome Route Wt Sex Labor Length Anesthesia Delivery Location Provider FOB 06/2018 [place] 39 Breech [facility]CS 7lb2oz F n/a Spinal [facility] [place] Pope Labs: Mom's Problem List Problem Status Onset Code 39 weeks gestation of Acute Z3A.39 Mom's Labs & Results 01/16/20 01/16/20 06:10 06:10 WBC 10.6 RBC 4.43 Hgb 11.7 L Hct 36.6 L MCV 82.6 MCH 26.4 L MCHC 32.0 RDW Std Deviation 40.9 RDW Coeff of Amor 13.8 Plt Count 196 MPV 10.6 Immature Gran % (Auto) 0.900 Neut % (Auto) 67.3 Lymph % (Auto) 23.4 [place] % (Auto) 6.8 Eos % (Auto) 1.1 Baso % (Auto) 0.5 Absolute Neuts (auto) 7.1 Absolute Lymphs (auto) 2.47 Nucleated RBC % 0 Differential Comment SCANNED Blood Type Pending Antibody Screen Pending Course Did the patient receive Yes care? Labs Blood Type: O RH: POSITIVE RPR/VDRL/Syphilis Nonreactive Rubella status Immune HbSAg Negative Date Done: 06/26/19 Chlamydia Negative Gonorrhea Negative HIV/AIDS Non-Reactive Group B Strep: Negative Current Obstetrical History Gestational Diabetes No Incompetent Cervix No Infertility No IUGR No Macrosomia No Hypertension/Pre-eclampsia No Placenta Previa/Abruption No PTL/PROM No Uterine anomaly Yes: bicornuate uterus Oligohydramnios No Polyhydramnios No Multiple gestation No Past Medical History Asthma No Diabetes No Hypertension No Heart disease No Mitral valve prolapse No Neurologic/Seizure disorder/ No Migraines Kidney disease No Liver disease No Varicosities No Clotting disorders/Hx of DVT No Thyroid Dysfunction No Other medical diseases No Psychiatric disorders No Major trauma No Abnormal PAP smear No Sleep apnea No Mammogram in the last 2 years No Social History Marital Status: Alleged father Niko Jones Hx Smoking No Smoking Status Never smoker Expected Infant Delivery Method: Scheduled Section Assessment/Plan All Active Problems (Last Updated 01/16/20 @ 07:[address] Sadaf Watson MD) 36 weeks gestation of (Acute) Decreased movement (Acute) 39 weeks gestation of (Acute) This is a 29 year-old, G [2], P [1], at 39 weeks gestational age. Proceed with repeat C/S as planned
--- NOTE | 2020-01-16 08:36 | PCM.OPRPT ---
Problem List (1) 39 weeks gestation of Status: Acute Report of Operation Pre-Operative Diagnosis: 1. Hx prior section Post-Operative Diagnosis: 1. Hx prior section. 2. dagoberto breech presentation Surgery/Procedure Performed:: Low transverse Cesaean section Delivery Classification: Scheduled Final RAQUEL: 01/23/20 Gestational age: 39 Weeks and 0 Days claim technician: Srinivas Dang Type of Anesthesia:: Spinal Date of Procedure: 01/16/20 Indications: 29yo @ 39wga presents for scheduled repeat section. Indications for : Repeat Elective Description of Procedure: The patient was taken to the operating room and spinal analgesia was administered. She is placed in a dorsal supine position with left lateral tilt. The perineum and abdomen were prepped and draped in sterile fashion. And the spinal was found to be adequate. A Pfannenstiel incision was made using a scalpel and brought down to incise the subcutaneous tissue and rectus fascia at the midline. Subcutaneous tissue was bluntly dissected off the fascia laterally. The fascial incision was dissected laterally and cephalad using curved Quiles scissors. The superior leaflet of the rectus fascia was grasped using Marilu clamps and bluntly dissected and sharply dissected from the underlying rectus muscle. In a similar fashion the inferior rectus fascia was dissected from the underlying muscle. The rectus muscles were bluntly at the midline. The peritoneum was identified and entered [sharply]. The bladder blade was placed into the abdomen and the vesicouterine peritoneal fold identified. The fold was incised and a bladder flap created. Bladder blade was then repositioned to the abdomen. A low transverse hysterotomy was made using the [Metzenbaum scissors] to level of the membranes. The hysterotomy was extended bluntly cephalad and caudad. The membranes were then ruptured revealing clear fluid. The fetus was notably in dagoberto breech presentation. The breech was delivered via the hysterotomy and using gentle bidirectional rotation to the level of the shoulders. The left and right upper extremity were swept through the hysterotomy and the head delivered spontaneously. The male infant was vigorous. The mouth and nares were bulb suction. The cord was doubly clamped and cut after 30 seconds. The was passed to awaiting [nursery personnel]. The placenta was [expressed] from the uterus and appeared intact on inspection. The uterus was exteriorized and cleared of debris. The shape was bicornuate and no septum was appreciated. The hysterotomy was then repaired using 0 Vicryl running lock suture. An omental adhesion just apical to the hysterotomy was sharply lysed then A second imbricating layer was also placed for additional hemostasis. The omental adhesion notably had a an aperture that was taken down. The omental segment was doubly clamped cut and each end suture ligated using 0 Vicryl. There is good hemostasis. The bladder blade was removed. The uterus and adnexa were returned to the abdomen. Interceed was placed over the hysterotomy. And Radha was placed at the base of dense omental uterine adhesion with good hemostasis obtained. Additional Interceed was placed at the sites. The peritoneum and rectus muscles were reapproximated using 2-0 Vicryl running suture. The rectus fascia was closed using 0 strata fix running suture. The subcutaneous tissue was reapproximated using 2-0 Vicryl. The skin was closed using 4-0 Monocryl subcuticularly by the CASTING ROOM HELPER under my supervision. A Mepilex occlusive dressing was placed over the incision. The fundus was firm. The patient was then transferred to the recovery room without complication. Sponge, instrument, and needle counts were correct ?2. Amniotic Membrane Rupture Type: Artificial Amniotic Fluid Description: Clear Placenta Disposition: [facility] Drain: [place] to straight drain Cord Entanglement: None Nuchal Cord Compression: Without compression Cord Vessel Description: 3 Vessels Esitmated Blood Loss (ml): 700 Infant Gender: Male (1 minute): 9 (5 minute): 9 Delayed cord clamping: Yes Antibiotic Given: Ancef 2 grams IV x1 Pt instructed on risks of surgery: Bleeding, Anesthesia Risks, Infection, Need for Future C-Sections, Injury to surrounding structure(s) including bowel and bladder Complications: None - Admit VTE Documentation VTE Present on Admission: No VTE Mechan Device Prophylaxis: SCD's VTE Pharm Prophylaxis ordered?: No
[2020-01-16] MEDS: Oxytocin 30 units/NS 500 ml 30 UNITS/500 ML IV.SOLN 167 UNITS IV (08:45)
[2020-01-16] MEDS: Lactated Ringers 1,000 ML 100 ML IV (12:08)
[2020-01-16] MEDS: Prenatal Vits Tablet 2 TABLET PO (14:08)
[2020-01-16] MEDS: Ketorolac 30 MG/ML Syringe IV ×2 (14:11→21:09)
[2020-01-16] MEDS: Heparin Injection (Vial) 5,000 UNIT/ML VIAL 5000 UNIT SC ×2 (14:14→21:47)
[2020-01-16] MEDS: 0.9% Saline Lock 10 ML Syringe IV ×2 (15:32→21:09)
[2020-01-17] VITALS (9 sets, daily range): BP systolic 115–124; BP diastolic 65–83; PULSE 81–102; RESP 16–20; TEMP 36.5–37; O2SAT 96–98
[2020-01-17] MEDS: 0.9% Saline Lock 10 ML Syringe IV ×3 (02:24→13:50)
[2020-01-17] MEDS: Ketorolac 30 MG/ML Syringe IV ×4 (02:24→21:18)
[2020-01-17 05:12] LABS: Hematocrit 30.2 % (37-47); Hemoglobin 9.7 g/dL (12.0-15.0); Mean Corp Hgb Conc 32.1 g/dL (32-36); Mean Corpuscular Hgb 26.6 pg (27.0-32.0); Mean Corpuscular Volume 82.7 fL (81-99); Mean Platelet Vol. 9.4 fl (6.2-12.0); Platelet Count 178 K/mm3 (150-450); RBC Distribution Width CV 13.9 % (11.6-14.6); RBC Distribution Width SD 41.6 fl (35.1-43.9); Red Blood Count 3.65 M/mm3 (4.2-5.4); White Blood Count 11.8 K/mm3 (4.4-11.0)
[2020-01-17] MEDS: Heparin Injection (Vial) 5,000 UNIT/ML VIAL 5000 UNIT SC ×3 (06:07→21:26)
--- NOTE | 2020-01-17 08:34 | PN.OBGYN_ITS ---
Patient Problems: Active and Suspected Problems (Last Updated 01/16/20 @ 07:[address] Sadaf Watson MD) 39 weeks gestation of (Acute) Subjective: Patient without complaints. Tolerating diet well. Positive flatus. Patient up and around with pain well controlled. Objective: Wound is clean, dry, intact with Mepilex dressing clear. Good urine output. Hemoglobin okay. - Physical Exam Vitals/I&O's: Vital Signs Temp Pulse Resp BP Pulse Ox 98.6 F 99 16 119/65 98 01/17/20 03:00 01/17/20 08:00 01/17/20 08:00 01/17/20 03:00 01/17/20 08:00 Oxygen Delivery Method Room Air Weight: 227 lb Body Mass Index (BMI) 45.8 Intake and Output for Last 24 Hours 01/15/20 01/16/20 01/17/20 23:59 23:59 23:59 Intake Total 5354.87 / 5354.87 Output Total 1700 / 1700 Balance 3654.87 / 3654.87 Laboratory Results 01/16/20 06:10: Blood Type O POSITIVE, Antibody Screen NEGATIVE 01/17/20 04:55: WBC 11.8 H, RBC 3.65 L, Hgb 9.7 L, Hct 30.2 L, MCV 82.7, MCH 26.6 L, MCHC 32.1, RDW Std Deviation 41.6, RDW Coeff of Amor 13.9, Plt Count 178, MPV 9.4 Current Medications Acetaminophen (Tylenol) 1,000 mg PO Q8H PRN PRN Reason: Pain Score 1-3/10 Bisacodyl (Dulcolax) 10 mg RECTAL UD PRN PRN Reason: If no BM Diphenhydramine HCl (Benadryl) 25 mg PO Q6H PRN PRN PRN Reason: ITCHING Stop: 01/17/20 08:57 Heparin Sodium (Porcine) (Heparin Na) 5,000 unit SC Q8 PENDING SALE TO [facility] Last Admin: 01/17/20 06:07 Dose: 5,000 unit Documented by: Hydrocortisone (Hytone) 1 applic TOPICAL TID PRN PRN; Protocol PRN Reason: Discomfort Lactated Ringer's () 1,000 mls @ 100 mls/hr IV .Q10H PENDING SALE TO [facility] Last Admin: 01/17/20 08:26 Dose: Not Given Documented by: Naloxone HCl 4 mg/ Dextrose 504 mls @ 0 mls/hr IV .Q0M PRN; Protocol PRN Reason: Respiratory depression Ibuprofen (Motrin) 600 mg PO Q6H PRN PRN PRN Reason: Pain Score 1-3/10 Ketorolac Tromethamine (Toradol (Bkc)) 30 mg IV Q6H PENDING SALE TO [facility] Stop: 01/18/20 08:01 Last Admin: 01/17/20 02:24 Dose: 30 mg Documented by: Methylergonovine Maleate (Methergine) 0.2 mg IM X1 PRN PRN Reason: Uterine Atony Nalbuphine HCl (Nubain) 5 mg IV Q3H PRN PRN PRN Reason: ITCHING Stop: 01/17/20 08:57 Naloxone HCl (Narcan) 0.02 mg IV Q1M PRN PRN Reason: RR <10 and pt unresponsive Ondansetron HCl (Zofran) 4 mg IV Q4H PRN PRN PRN Reason: Nausea Oxycodone HCl (Oxyir) 5 - 10 mg PO Q4H PRN PRN PRN Reason: Pain Score 4-10/10 Pantoprazole Sodium (Protonix) 20 mg PO DAILY PENDING SALE TO [facility] Last Admin: 01/16/20 13:15 Dose: Not Given Documented by: Multivit/Folic Acid/Iron (Prenatabs Fa) 1 tablet PO DAILY@1200 VI[place] Prochlorperazine Edisylate (Compazine Iv) 10 mg IV Q6H PRN PRN PRN Reason: NAUSEA Senna/Docusate Sodium (Senokot-S, Bailey-Colace) 0 tablet PO DAILY PRN PRN Reason: Constipation Simethicone (Mylicon) 80 mg PO PCHS PRN PRN Reason: Indigestion/stomach pain Sodium Chloride () 5 - 15 ml IV UD PRN PRN Reason: SALINE FLUSH Last Admin: 01/17/20 02:24 Dose: 10 ml Documented by: Medical Necessity - Tobacco Use Smoking Status: Never smoker Assessment/Plan All Active Problems (Last Updated 01/16/20 @ 07:[address] Sadaf Watson MD) 36 weeks gestation of (Acute) Decreased movement (Acute) 39 weeks gestation of (Acute) Doing well postoperative day #1 status post section. Continuing present care.
[2020-01-17] MEDS: Prenatal Vits Tablet 1 TABLET PO (11:20)
[2020-01-17] MEDS: Senna/Docusate Sodium 1 Tablet PO (13:50)
[2020-01-17] MEDS: Acetaminophen 500 MG Tablet 1000 MG PO (17:48)
[2020-01-18] MEDS: Acetaminophen 500 MG Tablet 1000 MG PO ×2 (01:57→13:49)
[2020-01-18 02:05] VITALS: BP 106/62; PULSE 89; RESP 18; TEMP 36.7
[2020-01-18] MEDS: 0.9% Saline Lock 10 ML Syringe IV (02:41)
[2020-01-18] MEDS: Ketorolac 30 MG/ML Syringe IV ×2 (02:41→08:29)
[2020-01-18] MEDS: Heparin Injection (Vial) 5,000 UNIT/ML VIAL 5000 UNIT SC (06:50)
[2020-01-18 08:32] VITALS: BP 115/72; PULSE 86; RESP 16; TEMP 37.1; O2SAT 97
--- NOTE | 2020-01-18 10:12 | DCINST_ITS ---
Discharge Diet: No Restrictions Discharge Activity: May Not Drive - for 2 weeks or while taking narcotic pain meds., May Shower, May Take a Tub Bath - in 7 days. May resume sexual activity in: 4-6 weeks Lifting Restrictions: 20 pounds Additional Activity Instructions:: Nothing in the vagina for 4-6 weeks. You may return to work/school in 6 weeks. Call your doctor if your incision/area has: Continuous Slow Oozing, Sudden Increased Bleeding, Increased Pain/ Swelling, Increased Redness, Foul Smelling Discharge Call your doctor if you observe: Fever of 101 or Higher Suture Line Care: Avoid Pulling/Pushing, Avoid Pinching/Bending Remove Dressing in (days):: 5 Cleanse incision/area with: Soap & Water - after dressing removal Instructions: at Home, : Caring for Yourself, Understanding Depression, After a Additional Instructions: If you experience any of the following, contact your healthcare provider. * Bleeding that soaks a pad every hour for 2 hours * Fever 100.4 or higher * Unrelieved incision or abdominal pain * Swelling, redness, discharge or bleeding from your incision or episiotomy site * Your incision begins to separate * Problems urinating (including inability to urinate or burning while urinatin g). * Visual changes * Severe headache * Flu-like symptoms * Pain or redness in one of both of your breasts * Pain, warmth, tenderness or swelling in your legs, especially the calf area * Frequent nausea and vomiting * Symptoms of depression or anxiety If you experience any of the following, call 911 or go to the nearest Emergency Room. * Chest pain * Problems breathing * Seizure activity * Partial or complete paralysis of a body part, slurred speech, weakness or drooping of the face, or a sudden inability to walk or hold your balance Allergies/Adverse Reactions: Allergies No Known Allergies Allergy (Verified 01/16/20 06:30) Medications to take at Discharge Vits [Prenatabs FA ] 1 tablet PO DAILY 06/21/18 Doxylamine Succinate [Unisom Sleep Aid] 25 mg PO QHS 01/14/20 Esomeprazole Mag Trihydrate [Nexium] 20 mg PO DAILY 01/15/20 Acetaminophen [Tylenol] 1,000 mg PO Q8H PRN tablet 01/18/20 Ibuprofen [Motrin] 600 mg PO Q6H PRN PRN tablet 01/18/20 Oxycodone [Oxyir] 5 - 10 mg PO Q4H PRN PRN 3 Days #10 tablet 01/18/20 The following prescriptions were given: Oxycodone [Oxyir] 5 - 10 mg PO Q4H PRN PRN 3 Days #10 tablet PRN Reason: Pain Score 4-10/10 Transmission Status: Sent to [facility] Follow-Up: Call to make an appointment with your doctor for an incision check in 1-2 weeks. You will also need a 6 week post- follow up appointment. Test results from this visit will be discussed in further detail at your follow- up appointment, if applicable. Please Follow Up With: Sadaf Watson MD Primary Care Physician: Niko Gilliam MD [Primary Care Provider] -
--- NOTE | 2020-01-18 10:18 | PCM.PN.BLA ---
Progress Note S: Feeling well, with no incisional pain. Some lower back pain, but relieved with Tylenol. Wasn't planning to go home today, but feels okay to leave. O: VSS. male . Fundus u/2. Scant lochia rubra. Miplex dressing CDI. A: S/P Repeat POD #2 mother Infant s/p circumcision day #1 Dyad stable P: To discharge home today Rx for pain medication, but encouraged Tylenol and Ibuprofen use To call for help if issues start Remove Mepilex in 5 days To return in 1-2 weeks for incision check Call immediately with any s/s of PPD STROKE Vital Signs/Narrative: Vital Signs Temp Pulse Resp BP Pulse Ox 01/18/20 08:32 98.7 F 86 16 115/72 97
[2020-01-18] MEDS: Prenatal Vits Tablet 1 TABLET PO (11:44)
[2020-01-18] MEDS: Senna/Docusate Sodium 1 Tablet PO (13:24)
[2020-01-18 13:26] VITALS: BP 135/80; PULSE 95; RESP 16; TEMP 36.8; O2SAT 96
== END 2020-01-18 15:30 | disposition home or self-care (01) | DRG 788 ==
PROVIDERS: Admitting Provider Obstetrics & Gynecology; PCP Family Medicine; Referring Provider Obstetrics & Gynecology; Visit Provider Obstetrics & Gynecology
PROC: 10D00Z1 Extraction of Products of Conception, Low, Open Approach (ICD-10-PCS; CPT 59514; principal; 2020-01-16 07:15)
DX: O34.211 Maternal care for low transverse scar from previous cesarean delivery (principal); Z37.0 Single live birth; Z3A.39 39 weeks gestation of pregnancy; O34.03 Maternal care for unspecified congenital malformation of uterus, third trimester; Q51.3 Bicornate uterus; O32.1XX0 Maternal care for breech presentation, not applicable or unspecified
CPT/HCPCS: 85025; 85027; 86850; 86900; 86901; 99218; 99251; J7120; A4216; G0378; G0463; J2405

== ENCOUNTER 2021-03-25 12:09 | Emergency (ER) | payer OTHER, SELFPAY ==
[2021-03-25 12:10] VITALS: BMI 45.8
[2021-03-25 12:11] VITALS: BP 132/89; PULSE 76; RESP 17; TEMP 36.3; O2SAT 99; BMI 41.8
--- NOTE | 2021-03-25 12:12 | ED.RN ---
NO OLD EKGS
[2021-03-25 12:14] VITALS: BP 132/89; PULSE 95; RESP 16; O2SAT 98
--- NOTE | 2021-03-25 12:42 | EKG12_ITS ---
Test Reason : HTN Blood Pressure : / mmHG Vent. Rate : 077 BPM Atrial Rate : 077 BPM P-R Int : 152 ms QRS Dur : 094 ms QT Int : 386 ms P-R-T Axes : 029 012 010 degrees QTc Int : 436 ms Normal sinus rhythm with sinus arrhythmia Normal ECG Confirmed by ALFONZO LAGUERRE, ROMULO ([id number]), editorial writer RAY RODRIGUEZ ([id number]) on 03/28/2021 12:50:22 PM Referred By: DEMETRI/SHELLEY Confirmed By:ROMULO MEJÍA MD
--- NOTE | 2021-03-25 12:42 | CT_ITS ---
STUDY: CT BRAIN WITHOUT CONTRAST REASON FOR EXAM: Female, 30 years old. Left arm paresthesia RADIATION DOSAGE (If Supplied By Facility): CTDIvol = ( 44.99 ) mGy, DLP = ( 745.49 ) mGycm TECHNIQUE: Transaxial CT imaging of the brain was performed without administration of intravenous contrast material. Individualized dose optimization techniques were used for this CT. COMPARISON: No relevant priors. FINDINGS: Normal soft tissue structures. Normal calvarium. Normal size ventricles and extra-axial spaces for the patient''s age. Normal white matter tracts of the cerebral hemispheres. Normal basal ganglia and thalami. Normal brainstem. Normal cerebellum. There is no intracranial hemorrhage. There are no findings of an acute ischemic infarction. Minimal degree of mucosal thickening along the anterior inferior aspect of the right maxillary sinus. CT/Brain/Head without Contrast IMPRESSION: Normal unenhanced CT scan of the brain. Electronically Signed: Ezequiel Brennan MD at 13:10 EDT , Service support ,
--- NOTE | 2021-03-25 12:43 | EDS_ITS ---
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 She states it was the whole arm up to the shoulder. She states that she was having intermittent blurry vision of the left eye only she describes that as a sensation that she was looking through bubbles but over on the lateral aspect of the eye. She states she had some nausea and lightheadedness. She had some chest discomfort on the left upper ribs area she tells me that the nurse evaluated her and took her blood pressure was 150/110 advised her she needed to come to the hospital. Patient on the way here noted some anterior proximal left thigh pain but wonders if that was due to her workout last night. 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 Patient states that she is otherwise healthy. She takes oral contraceptives does not smoke. [facility] Medical History Orthopedic hardware present Home Medications desog-e.estradiol/e.estradiol [Azurette (28)] 1 tab PO DAILY 03/25/21 [History Last Taken Unknown] Allergy/AdvReac Type Severity Reaction Status Date / Time No Known Allergies Allergy Verified 03/25/21 12:10 Family History (Updated 07/02/18 @ 13:33 by Radha Yee) Other Family history pertaining to brother brother Surgical History Previous section [place] teeth extracted Social History (Updated 03/25/21 @ 12:[address] Rl Hammond DO) household members: family Smoking Status: Never smoker ROS ROS ED Constitutional Constitutional ED: Denies chills or weight loss Eyes Eyes: Reports blurry vision and change in vision; Denies diplopia ENT ENT ED: Denies ear pain, rhinorrhea or sore throat Cardiovascular Cardiovascular: Reports chest pain and other Details: Lightheadedness ; Denies orthopnea, palpitations or racing heartbeat Respiratory/Chest Respiratory/Chest: Denies cough, dyspnea or orthopnea Gastrointestinal Gastrointestinal: Reports nausea; Denies abdominal pain, diarrhea or vomiting Genitourinary Genitourinary ED: Denies dysuria, hematuria or urinary frequency Musculoskeletal Musculoskeletal: Denies arthralgias or myalgias Integumentary Denies abscess or rash Neurologic Neurologic: Reports paresthesias; Denies headache(s) or weakness Psychiatric Psychiatric: Denies anxiety, depression, suicidal ideation or suicidal thoughts Endocrine Endocrinology: Denies polydipsia, polyphagia or polyuria Allergic/Immunologic Allergic/Immunologic ED: Denies mouth swelling, tongue swelling or urticaria EXAM Physical Exam Const Vital Signs: 03/25/21 12:11 03/25/21 12:14 03/25/21 12:23 Temperature 97.3 F L Temperature Source Temporal Pulse Rate 76 95 Respiratory Rate 17 16 Respiratory Effort Normal Non-Labored Respiratory Pattern Normal Blood Pressure 132/89 H 132/89 H Blood Pressure Mean 103 103 Pulse Ox 99 98 Oxygen Delivery Method Room Air Room Air Positive well nourished and well developed General Appearance ED: well developed HEENT Reports normocephalic, head/scalp atraumatic and moist mucous membranes Eyes PERRL and EOMs intact bilaterally Neck no lymphadenopathy, supple and no JVD Resp normal respiratory effort and clear to auscultation bilaterally Cardio regular rate, regular rhythm and no murmurs GI normal to inspection, nondistended, normoactive bowel sounds and non-tender Palpation: soft Back/Spine no CVA tenderness and normal ROM Extremity normal to inspection General Extremety ED: Negative for edema General Extremity: Negative for edema Neuro oriented x3 and CN's II-XII intact bilaterally Sensorium / Orientation: alert Motor Exam: strength 5/5 throughout Psych Mood & Affect: anxious; Negative for depressed or tearful Skin no rashes or lesions noted and no wounds MDM MDM MDM Narrative Medical decision making narrative: Patient's work-up is essentially negative. CTA of the chest demonstrates no dissection. The patient symptoms have res olved. At this point patient be discharged home to follow-up with her doctor return if worsening or concerns Lab Data Attestation: I reviewed the patient's lab results. Labs: Laboratory Results - last 24 hr 03/25/21 03/25/21 03/25/21 12:20 12:20 12:20 WBC 9.4 RBC 5.08 Hgb 13.0 Hct 41.6 MCV 81.9 MCH 25.6 L MCHC 31.3 L RDW Std Deviation 39.8 RDW Coeff of Amor 13.2 Plt Count 322 MPV 9.3 Immature Gran % (Auto) 0.300 Neut % (Auto) 61.0 Lymph % (Auto) 32.5 Wise % (Auto) 5.1 Eos % (Auto) 0.5 Baso % (Auto) 0.6 Absolute Neuts (auto) 5.7 Absolute Lymphs (auto) 3.04 Nucleated RBC % 0 D-Dimer Quant (PE/DVT) 0.53 H* Sodium 139 Potassium 3.3 L Chloride 106 Carbon Dioxide 25.0 Anion Gap 8 BUN 9 Creatinine 0.97 Estim Creat Clear Calc 126.85 Est GFR (MDRD) Af Amer 87 Est GFR (MDRD) Non-Af 72 BUN/Creatinine Ratio 9.3 L Glucose 95 Calcium 8.8 Total Bilirubin 0.30 AST 25 ALT 23 Alkaline Phosphatase 66 Troponin I < 0.015 Total Protein 7.5 Albumin 3.8 Globulin 3.7 Albumin/Globulin Ratio 1.0 Radiography Diagnostic Testing: Radiology Impression Brain CT 03/25/21 12:42 IMPRESSION: Normal unenhanced CT scan of the brain. Electronically Signed: Ezequiel Brennan MD at 13:10 EDT , Service support , Chest X-Ray 03/25/21 12:55 IMPRESSION: Normal x-ray examination of the chest. Electronically Signed: Ezequiel Brennan MD at 13:05 EDT , Service support , Chest CTA 03/25/21 13:24 IMPRESSION: Normal CTA chest examination, without a demonstrated pulmonary embolism or arterial dissection. Electronically Signed: Ezequiel Brennan MD at 13:58 EDT , Service support , EKG Initial EKG: Attestation: I personally reviewed and interpreted this EKG as follows: Discharge Plan Triage Chief Complaint: Chest Pain ED Provider: Rl Hammond Dx/Rx/DC Orders Clinical Impression: Arm paresthesia, left, Blurred vision, left eye Instructions: ED Paraesthesias Prescriptions: No Action desog-e.estradiol/e.estradiol [[place] (28)] 0.15-0.02 mgx21 /0.01 mg x 5 tablet 1 tab PO DAILY RF: 0 Primary Care Provider: Niko Gilliam Referrals: Niko Gilliam MD [Primary Care Provider] - As soon as possible Disposition Disposition: Home, self care
--- NOTE | 2021-03-25 12:55 | RAD_ITS ---
STUDY: X-RAY CHEST REASON FOR EXAM: Female, 30 years old. Chest pain. Left arm numbness. TECHNIQUE: Single AP portable view of the chest. COMPARISON: None. FINDINGS: EKG electrodes are seen. The lungs are clear and expanded. There is no demonstrated pleural abnormality. Normal size heart. Normal mediastinum and sharon. Normal visualized pulmonary arteries. Normal visualized aortic arch and descending thoracic aorta. Normal visualized thoracic spine. Normal visualized ribs, clavicles, and shoulders. There is no demonstrated abnormality of the visualized soft tissue structures of the upper abdomen. RAD/Chest 1 View (Portable) IMPRESSION: Normal x-ray examination of the chest. Electronically Signed: Ezequiel Brennan MD at 13:05 EDT , Service support ,
[2021-03-25 13:05] LABS: Absolute Lymphocyte Count 3.04 X10^3/uL (0.83-4.51); Absolute Neutrophil Count 5.7 X10^3/uL (2.0-7.7); Basophil# 0.06 X10^3/uL; Basophil% 0.6 % (0-1); Eosinophil# 0.05 X10^3/uL; Eosinophils% 0.5 % (0-5); Hematocrit 41.6 % (37-47); Lymphocyte # 3.04 X10^3/ul (0.83-4.51); Lymphocyte % 32.5 % (19-41); Mean Corp Hgb Conc 31.3 g/dL (32-36); Mean Corpuscular Hgb 25.6 pg (27.0-32.0); Mean Corpuscular Volume 81.9 fL (81-99); Mean Platelet Vol. 9.3 fl (6.2-12.0); Monocyte# 0.48 X10^3/uL; Monocyte% 5.1 % (0-10); NRBC Flagged by Analyzer 0 % (0-5); Neutrophil # 5.69 X10^3/uL (2.7-7.7); Platelet Count 322 K/mm3 (150-450); RBC Distribution Width CV 13.2 % (11.6-14.6); RBC Distribution Width SD 39.8 fl (35.1-43.9); Red Blood Count 5.08 M/mm3 (4.2-5.4); White Blood Count 9.4 K/mm3 (4.4-11.0)
[2021-03-25 13:16] LABS: D-Dimer Quantitative (DVT/PE) 0.53 FEU/ug/m (0.27-0.49)
[2021-03-25 13:22] LABS: AST(SGOT) 25 U/L (15-37); Alanine Aminotransfer ALT/SGPT 23 U/L (13-56); Albumin, Serum 3.8 g/dL (3.2-5.0); Alkaline Phosphatase 66 U/L (45-117); Anion Gap 8 (5-15); BUN 9 mg/dL (7-18); BUN/Creat Ratio 9.3 RATIO (10-20); Calcium,Total 8.8 mg/dL (8.5-10.1); Chloride 106 mmol/L (98-107); Creatinine, Serum 0.97 mg/dL (0.55-1.02); EST Glomerular Filtration Rate 72 mL/min (>60); Est Glom Filt Rate - Afr Amer 87 mL/min (>60); Estimated Creatinine Clearance 126.85 ml/min; Globulin 3.7 g/dL (2.2-4.2); Glucose 95 mg/dL (74-106); Potassium 3.3 mmol/L (3.5-5.1); Protein, Total 7.5 g/dL (6.4-8.2); Sodium Level 139 mmol/L (136-145)
--- NOTE | 2021-03-25 13:24 | CT_ITS ---
STUDY: CTA CHEST REASON FOR EXAM: Female, 30 years old. Chest pain elevated d dimer RADIATION DOSAGE (If Supplied By Facility): CTDIvol = ( 15.62 ) mGy, DLP = ( 468.81 ) mGycm TECHNIQUE: The examination was performed with the intravenous administration of IV 100mL Isovue-370. Post-processing of the angiographic images was performed, with multiplanar reformation and 3D reconstruction. Individualized dose optimization techniques were used for this CT. COMPARISON: None. FINDINGS: Normal enhancement of the main pulmonary artery and right and left pulmonary arteries. Normal enhancement of the bilateral peripheral pulmonary arteries. There is no demonstrated pulmonary embolism. Normal thoracic aorta and visualized great vessels. There is no demonstrated aortic dissection. Normal heart and pericardium. Normal mediastinum. Normal hilar regions. Normal visualized trachea and bronchi. The lungs are well expanded. Normal pulmonary parenchyma. Normal pleura. Normal chest wall structures. Normal osseous structures. Normal visualized upper abdomen. CT/CTA Chest W/WO Contrast IMPRESSION: Normal CTA chest examination, without a demonstrated pulmonary embolism or arterial dissection. Electronically Signed: Ezequiel Brennan MD at 13:58 EDT , Service support ,
[2021-03-25 14:12] VITALS: BP 126/85; PULSE 78; RESP 16; O2SAT 98
== END 2021-03-25 14:13 | disposition home or self-care (01) ==
PROVIDERS: Emergency Provider Emergency Medicine; PCP Family Medicine
DX: R20.2 Paresthesia of skin (principal); H53.8 Other visual disturbances; R11.0 Nausea; R42 Dizziness and giddiness; R07.89 Other chest pain; Z79.3 Long term (current) use of hormonal contraceptives
CPT/HCPCS: 70450; 71045; 71275; 80053; 84484; 85025; 85379; 93005; 99285; Q9967

== ENCOUNTER 2021-07-09 20:51 | Emergency (ER) | payer OTHER, SELFPAY ==
[2021-07-09 20:51] VITALS: BP 127/83; PULSE 82; RESP 16; TEMP 36.6; O2SAT 98; BMI 42.5
--- NOTE | 2021-07-09 21:09 | EX.ED.DYSGE1 ---
HPI History of Present Illness Chief Complaint: Rash Informant: patient Narrative Narrative: 30-year-old female presenting for the evaluation of rash on her anterior proximal left leg. She tells me that she had a rash that resembled ringworm and started to apply an antifungal cream. Today she noticed small pustules and surrounding erythema. No prior history of MRSA or abscesses. [facility] Medical History Orthopedic hardware present Home Medications desog-e.estradiol/e.estradiol [Azurette (28)] 1 tab PO DAILY 03/25/21 [History Last Taken Unknown] cephalexin 500 mg PO Q6 #40 capsule 07/09/21 [Rx Last Taken Unknown] sulfamethoxazole-trimethoprim 1 tab PO BID #20 tablet 07/09/21 [Rx Last Taken Unknown] Allergy/AdvReac Type Severity Reaction Status Date / Time No Known Allergies Allergy Verified 07/09/21 20:51 Family History Other Family history pertaining to brother brother Surgical History Previous section [place] teeth extracted Social History household members: family Smoking Status: Never smoker ROS ROS ED Constitutional Constitutional ED: Denies chills or weight loss Eyes Eyes: Denies change in vision or diplopia ENT ENT ED: Denies ear pain, rhinorrhea or sore throat Cardiovascular Cardiovascular: Denies chest pain, orthopnea, palpitations or racing heartbeat Respiratory/Chest Respiratory/Chest: Denies cough, dyspnea or orthopnea Gastrointestinal Gastrointestinal: Denies abdominal pain, diarrhea, nausea or vomiting Genitourinary Genitourinary ED: Denies dysuria, hematuria or urinary frequency Musculoskeletal Musculoskeletal: Denies arthralgias or myalgias Integumentary Reports rash; Denies abscess Neurologic Neurologic: Denies headache(s) or weakness Psychiatric Psychiatric: Denies anxiety, depression, suicidal ideation or suicidal thoughts Endocrine Endocrinology: Denies polydipsia, polyphagia or polyuria Allergic/Immunologic Allergic/Immunologic ED: Denies mouth swelling, tongue swelling or urticaria EXAM Physical Exam Const Vital Signs: 07/09/21 20:51 Temperature 97.8 F Temperature Source Temporal Pulse Rate 82 Respiratory Rate 16 Blood Pressure 127/83 H Blood Pressure Mean 97 Pulse Ox 98 Oxygen Delivery Method Room Air Positive well nourished and well developed General Appearance ED: well developed HEENT Reports normocephalic, head/scalp atraumatic and moist mucous membranes Eyes PERRL and EOMs intact bilaterally Neck no lymphadenopathy, supple and no JVD Resp normal respiratory effort and clear to auscultation bilaterally Cardio regular rate, regular rhythm and no murmurs GI normal to inspection, nondistended, normoactive bowel sounds and non-tender Palpation: soft Back/Spine no CVA tenderness and normal ROM Extremity General Extremety ED: Yes tenderness; Negative for edema General Extremity: Negative for edema Neuro oriented x3 and CN's II-XII intact bilaterally Sensorium / Orientation: alert Motor Exam: strength 5/5 throughout Psych mental status grossly normal Mood & Affect: Negative for depressed or tearful Skin no wounds Skin Narrative: Located on the anterior aspect of the proximal right leg is a area of circular erythema which measures about 4 cm in diameter. In the center of is a quarter sized area of thickened skin and with several very minute pustules. MDM MDM MDM Narrative Medical decision making narrative: The patient has a picture of the original rash which I would agree appears to be ringworm. It now appears that she has a bacterial cellulitis. I'll place her on Keflex and Bactrim. Warm compresses. Follow-up with primary care return if worsening or concerns Discharge Plan Triage Chief Complaint: Rash ED Provider: Rl Hammond Dx/Rx/DC Orders Clinical Impression: Cellulitis of left leg Instructions: ED Cellulitis Prescriptions: New sulfamethoxazole-trimethoprim [sulfamethoxazole-trimethoprim] 1 TABLET tablet 1 tab PO BID Qty: 20 RF: 0 cephalexin [cephalexin] 500 MG capsule 500 mg PO Q6 Qty: 40 RF: 0 No Action desog-e.estradiol/e.estradiol [Azurette (28)] 0.15-0.02 mgx21 /0.01 mg x 5 tablet 1 tab PO DAILY RF: 0 Primary Care Provider: Niko Gilliam Referrals: Niko Gilliam MD [Primary Care Provider] - 1 Week Disposition Disposition: Home, Self Care
== END 2021-07-09 21:22 | disposition home or self-care (01) ==
LOC: ED 21:16
PROVIDERS: Emergency Provider Emergency Medicine; PCP Family Medicine
DX: L03.116 Cellulitis of left lower limb (principal)
CPT/HCPCS: 99282

== ENCOUNTER 2021-07-18 19:47 | Emergency (ER) | payer OTHER, SELFPAY ==
[2021-07-18 19:48] VITALS: BP 139/85; PULSE 92; RESP 16; TEMP 36.5; O2SAT 100; BMI 42.0
--- NOTE | 2021-07-18 21:26 | EDS_ITS ---
HPI History of Present Illness Chief Complaint: Allergic Reaction Informant: patient Onset/Context/Timing Onset: Days Context: Gradual Onset Timing: Continuous Current Severity: Moderate Maximum Severity: Moderate Narrative Narrative: 30-year-old female no sniffing past medical history. Developed cellulitis on her left leg secondary to ringworm. Was placed on Bactrim and Keflex. That was getting better now she is having allergic reaction to one of the antibiotics. Describes hives today all over. Mild itching. The allergic reaction started slowly on Sunday and has progressed. No lip or tongue swelling. No prior history. Prior similar symptoms: No Recent Illness/Hospitalization: No PFSH PFS Medical History Orthopedic hardware present Home Medications desog-e.estradiol/e.estradiol [Azurette (28)] 1 tab PO DAILY 03/25/21 [History Last Taken Unknown] cephalexin 500 mg PO Q6 #40 capsule 07/09/21 [Rx Last Taken Unknown] sulfamethoxazole-trimethoprim 1 tab PO BID #20 tablet 07/09/21 [Rx Last Taken Unknown] prednisone 40 mg PO DAILY 5 Days #10 tab 07/18/21 [Rx Last Taken Unknown] terbinafine HCl 1 applic TOPICAL BID #15 g 07/18/21 [Rx Last Taken Unknown] Allergy/AdvReac Type Severity Reaction Status Date / Time No Known Allergies Allergy Verified 07/18/21 19:51 Family History Other Family history pertaining to brother brother Surgical History Previous section [place] teeth extracted Social History household members: family Smoking Status: Never smoker ROS ROS ED ROS Narrative Rash and itching. Review of Systems ROS Unobtainable: Denies due to encephalopathy Constitutional Constitutional ED: Denies chills or fever(s) Eyes Eyes: Denies change in vision ENT ENT ED: Denies ear pain or sore throat Cardiovascular Cardiovascular: Denies chest pain Respiratory/Chest Respiratory/Chest: Denies cough or dyspnea Gastrointestinal Gastrointestinal: Denies abdominal pain, diarrhea, nausea or vomiting Genitourinary Genitourinary ED: Denies dysuria or hematuria Musculoskeletal Musculoskeletal: Denies myalgias Integumentary Reports rash Neurologic Neurologic: Denies headache(s) Psychiatric Psychiatric: Denies depression Endocrine Endocrinology: Denies polyuria Allergic/Immunologic Allergic/Immunologic ED: Denies urticaria EXAM Physical Exam Narrative Exam Narrative: Well-appearing 30-year-old no acute distress. Allergic reaction consistent with hives all over. No lip or tongue swelling. Also on her left leg she has what appears to be ringworm. Lungs are clear. Heart regular rhythm. Abdomen soft nontender. Const Vital Signs: 07/18/21 19:48 Temperature 97.7 F L Temperature Source Temporal Pulse Rate 92 Respiratory Rate 16 Blood Pressure 139/85 H Blood Pressure Mean 103 Pulse Ox 100 Oxygen Delivery Method Room Air Positive well nourished, well developed and obese; Negative for cachectic, contractures or unkempt General Appearance ED: well developed and NAD; Negative for unkempt, cachectic or contractures Nutritional Appearance: obese; Negative for cachectic HEENT Reports moist mucous membranes Negative for trauma or tenderness Eyes PERRL and EOMs intact bilaterally Neck no lymphadenopathy, supple and no JVD General: Negative for tenderness Chest Wall inspection of chest normal and palpation of chest normal Resp normal respiratory effort and clear to auscultation bilaterally Cardio regular rate, regular rhythm, S1 normal heart sound, S2 normal heart sound and no murmurs Rate: Negative for tachycardic GI normal to inspection, nondistended, normoactive bowel sounds, non-tender and non-distended Auscultation: normoactive bowel sounds Palpation: soft; Negative for tender Back/Spine no CVA tenderness Extremity normal to inspection Extremity Narrative: Rash consistent with allergic reaction on both upper and lower extremities. Ringworm on left medial thigh. General Extremety ED: Negative for edema or tenderness General Extremity: Negative for edema Neuro oriented x3 and CN's II-XII intact bilaterally Sensorium / Orientation: alert; Negative for orientation impaired, lethargic or stuporous Motor Exam: strength 5/5 throughout Psych mental status grossly normal Appearance: Negative for unkempt Skin No no rashes or lesions noted and no wounds Skin Narrative: Consistent with allergic reaction most likely to Bactrim. Rashes: rashes noted MDM MDM MDM Narrative Medical decision making narrative: Stop the Bactrim. Prednisone 60 mg here and and 40 mg a day for the next 5 days. Antifungal for the ringworm. Discharge Plan Triage Chief Complaint: Allergic Reaction ED Provider: Chandana Lazcano Dx/Rx/DC Orders Clinical Impression: Allergic drug reaction, Ringworm Instructions: ED ADVERSE DRUG REACTION Allergic, ED Ringworm, Skin Prescriptions: New prednisone 20 mg tablet 40 mg PO DAILY 5 Days Qty: 10 RF: 0 terbinafine HCl 1 % cream 1 applic topical BID Qty: 15 RF: 0 No Action desog-e.estradiol/e.estradiol [Azurette (28)] 0.15-0.02 mgx21 /0.01 mg x 5 tablet 1 tab PO DAILY RF: 0 sulfamethoxazole-trimethoprim [sulfamethoxazole-trimethoprim] 1 TABLET tablet 1 tab PO BID Qty: 20 RF: 0 cephalexin [cephalexin] 500 MG capsule 500 mg PO Q6 Qty: 40 RF: 0 Primary Care Provider: Niko Gilliam Referrals: Niko Gilliam MD [Primary Care Provider] - 3-5 Days if not improving Activity Restrictions/Additional Instructions: Prednisone 40 mg a day starting tomorrow with lunch for the next 5 days or until the rash is gone. Antifungal cream apply to the ringworm 2-3 times a day till gone. Your allergic reaction is most likely due to the antibiotic Bactrim which is a sulfa medication. You can never take that again. Stop the current one you are taking. You may continue using the Keflex. Disposition Disposition: Home, Self Care
[2021-07-18] MEDS: predniSONE 20 MG Tablet 60 MG PO (21:30)
== END 2021-07-18 21:42 | disposition home or self-care (01) ==
LOC: ED 21:36
PROVIDERS: Emergency Provider Emergency Medicine; PCP Family Medicine
DX: L50.0 Allergic urticaria (principal); T36.95XA Adverse effect of unspecified systemic antibiotic, initial encounter; Y92.9 Unspecified place or not applicable; B35.9 Dermatophytosis, unspecified
CPT/HCPCS: 99283

== ENCOUNTER → 2022-04-28 | Outpatient (CLI) | payer OTHER, SELFPAY ==
[2022-05-04 21:41] LABS: HPV APTIMA, High Risk Negative (Negative)
== END | disposition home or self-care (01) ==
LOC: LABSPEC 13:05
PROVIDERS: PCP Family Medicine; Visit Provider Obstetrics & Gynecology
DX: Z12.4 Encounter for screening for malignant neoplasm of cervix (principal)
CPT/HCPCS: 87624; 88175; G0145

== ENCOUNTER → 2022-09-13 | Outpatient (CLI) | payer OTHER, SELFPAY ==
[2022-09-13 16:22] LABS: Absolute Lymphocyte Count 2.51 X10^3/uL (0.83-4.51); Absolute Neutrophil Count 6.6 X10^3/uL (2.0-7.7); Basophil# 0.06 X10^3/uL; Basophil% 0.6 % (0-1); Eosinophil# 0.06 X10^3/uL; Eosinophils% 0.6 % (0-5); Hematocrit 37.8 % (37-47); Hemoglobin 12.4 g/dL (12.0-15.0); Lymphocyte # 2.51 X10^3/ul (0.83-4.51); Lymphocyte % 25.3 % (19-41); Mean Corp Hgb Conc 32.8 g/dL (32-36); Mean Corpuscular Hgb 27.1 pg (27.0-32.0); Mean Corpuscular Volume 82.5 fL (81-99); Mean Platelet Vol. 9.1 fl (6.2-12.0); NRBC Flagged by Analyzer 0 % (0-5); Neutrophil # 6.56 X10^3/uL (2.7-7.7); Neutrophil % 66.1 % (47-70); Platelet Count 337 K/mm3 (150-450); RBC Distribution Width CV 13.4 % (11.6-14.6); RBC Distribution Width SD 40.2 fl (35.1-43.9); Red Blood Count 4.58 M/mm3 (4.2-5.4); White Blood Count 9.9 K/mm3 (4.4-11.0)
[2022-09-14 09:42] LABS: HIV - WCH Non-Reactive (Nonreactive); Hepatitis B Surface Antigen Non-Reactive (Nonreactive); Hepatitis C Antibody Non-Reactive (Nonreactive); Rubella IgG Reactive (Nonreactive); Syphilis Antibodies Non-reactive
[2022-09-15 15:09] LABS: V-Zoster IgG (Immunity) 519 index (Immune >165)
[2022-09-16 12:07] LABS: Chlamydia By Nucleic Acid AMP Negative (Negative)
[2022-09-16 12:20] LABS: Gonococcus By Nucleic Acid AMP Negative (Negative)
== END | disposition home or self-care (01) ==
LOC: WOBLAB 15:14
PROVIDERS: PCP Family Medicine; Visit Provider Obstetrics & Gynecology
DX: Z34.81 Encounter for supervision of other normal pregnancy, first trimester (principal)
CPT/HCPCS: 36415; 85025; 86703; 86762; 86780; 86787; 86803; 87086; 87088; 87340; 87491; 87591

== ENCOUNTER 2022-12-27 20:32 | Outpatient (CLI) | payer OTHER, SELFPAY ==
[2022-12-27 21:05] VITALS: BP 137/69; PULSE 86
[2022-12-27 21:19] VITALS: BP 122/56; PULSE 85
[2022-12-27 21:50] VITALS: BMI 43.7
--- NOTE | 2022-12-27 22:04 | OB.TRI.NOTE ---
HPI - General General Date of Service: 12/27/22 Chief Complaint: Decreased movement HPI Narrative CARLOS SKY, is a 32 F who presents with decreased movement and pelvic cramping. Pelvic cramping has now resolved. [facility] Medical History Orthopedic hardware present Home Medications desogestrel-e.estradiol 0.15 mg-0.02 mg(21)/e.estrad 0.01 mg(5) tablet (Azurette (28)) 1 tab PO DAILY 03/25/21 [History Last Taken Unknown] cephalexin 500 mg capsule 500 mg PO Q6 #40 CAPSULES 07/09/21 [Rx Last Taken Unknown] sulfamethoxazole 800 mg-trimethoprim 160 mg tablet 1 tab PO BID #20 TABLETS 07/09/21 [Rx Last Taken Unknown] prednisone 20 mg tablet 40 mg PO DAILY 5 days #10 tabs 07/18/21 [Rx Last Taken Unknown] terbinafine HCl 1 % topical cream 1 applic topical BID #15 grams 07/18/21 [Rx Last Taken Unknown] Allergy/AdvReac Type Severity Reaction Status Date / Time Sulfa (Sulfonamide AdvReac Rash Verified 12/27/22 22:05 Antibiotics) Family History Other Family history pertaining to brother brother Surgical History Previous section [place] teeth extracted Social History household members: family Smoking Status: Never smoker History Elective abortions Hx Para 1 Spontaneous abortions Hx # Term Pregnancies Ectopic pregnancies Hx # Pregnancies Multiple births # of living children Physical Exam Const alert, oriented x3, no apparent distress, average body habitus, no limitations and healthy appearing HEENT moist oral mucous membranes Eyes PERRL Neck full ROM Resp normal respiratory effort, no retractions and no use of accessory muscles GI GI Narrative: Soft, nontender, gravid Narrative: Cervical exam: Closed/thick/high Extremity normal to inspection, full ROM and no clubbing, cyanosis or edema Neuro moves all extremities and no focal motor deficits Psych mental status grossly normal, affect normal, speech normal and activity/motor behavior normal NST FHR Rate Baby A Baseline: 150 Assessment & Plan (1) : PLAN: Patient seen and examined. Decreased movement, heart tones reassuring. Patient now feeling movement. Educated patient on early gestational ages and expectations for movement. Patient with pelvic cramping at home now resolved, cervical exam closed. Reassuring. Educated patient on signs symptoms of labor. Okay to discharge home and follow-up scheduled appointments
== END 2022-12-27 22:15 | disposition home or self-care (01) ==
LOC: WPOUT 20:37 → WP 20:37
PROVIDERS: PCP Family Medicine; Visit Provider Obstetrics & Gynecology
DX: O36.8190 Decreased fetal movements, unspecified trimester, not applicable or unspecified (principal)
CPT/HCPCS: 59025; 59050; 99221; G0378

== ENCOUNTER → 2023-01-04 | Outpatient (CLI) | payer OTHER, SELFPAY ==
[2023-01-04 16:42] LABS: Absolute Lymphocyte Count 2.52 X10^3/uL (0.83-4.51); Absolute Neutrophil Count 7.7 X10^3/uL (2.0-7.7); Basophil# 0.04 X10^3/uL; Basophil% 0.4 % (0-1); Eosinophil# 0.05 X10^3/uL; Eosinophils% 0.5 % (0-5); Hematocrit 36.2 % (37-47); Hemoglobin 11.4 g/dL (12.0-15.0); Lymphocyte # 2.52 X10^3/ul (0.83-4.51); Mean Corp Hgb Conc 31.5 g/dL (32-36); Mean Corpuscular Hgb 26.5 pg (27.0-32.0); Monocyte# 0.52 X10^3/uL; Monocyte% 4.8 % (0-10); NRBC Flagged by Analyzer 0 % (0-5); Neutrophil # 7.69 X10^3/uL (2.7-7.7); Neutrophil % 70.2 % (47-70); Platelet Count 281 K/mm3 (150-450); RBC Distribution Width CV 13.9 % (11.6-14.6); Red Blood Count 4.31 M/mm3 (4.2-5.4); White Blood Count 10.9 K/mm3 (4.4-11.0)
[2023-01-04 16:59] LABS: Glucose Challenge Gest 1H 50g 143 mg/dL (70-140)
== END | disposition home or self-care (01) ==
PROVIDERS: PCP Family Medicine; Visit Provider Obstetrics & Gynecology
DX: Z34.82 Encounter for supervision of other normal pregnancy, second trimester (principal)
CPT/HCPCS: 36415; 82950; 85025

== ENCOUNTER → 2023-01-08 | Outpatient (CLI) | payer OTHER, SELFPAY ==
[2023-01-08 09:27] LABS: Glucose GTT-Gestation. Fasting 86 mg/dL (<105)
[2023-01-08 10:21] LABS: Glucose GTT-Gestational 1 Hr 156 mg/dL (<190)
[2023-01-08 11:23] LABS: Glucose GTT-Gestational 2 Hr 135 mg/dL (<165)
[2023-01-08 12:17] LABS: Glucose GTT-Gestational 3 Hr 117 L (<145)
== END | disposition home or self-care (01) ==
LOC: WOBLAB 08:34
PROVIDERS: PCP Family Medicine; Visit Provider Student in an Organized Health Care Education/Training Program
DX: O24.912 Unspecified diabetes mellitus in pregnancy, second trimester (principal)
CPT/HCPCS: 36415; 82951; 82952

== ENCOUNTER 2023-03-08 19:07 | Outpatient (CLI) | payer OTHER, SELFPAY ==
[2023-03-08 19:21] VITALS: PULSE 98; O2SAT 97
[2023-03-08 19:24] VITALS: BP 137/90; PULSE 93
[2023-03-08 19:36] VITALS: BP 139/92; PULSE 91
--- NOTE | 2023-03-08 19:45 | HP.PCM.OB_ITS ---
History and Physical Date of Admission: 03/08/23 HPI: 32-year-old G3, P2 at 34/0 weeks, RAQUEL 04/19/2023, presenting with contractions. Reports irregular contractions throughout today. Denies leaking of fluid or vaginal bleeding. Reports movement. Denies headache or vision changes, chest pain or shortness of breath, nausea or vomiting, diarrhea constipation, fevers or chills complicated by: Failed 1 hour, passed 3-hour. Obesity. [employer] history: G1: 39-week for breech G2: 39-week repeat Medical history: 1. Obesity Surgical history: 1. section x2 2. Arm surgery Medications: vitamin Allergies: Sulfa Social history: Denies tobacco, alcohol, drug use Family history: Denies history of blood clots or bleeding disorders Review of system: Negative otherwise stated above Physical exam: Blood pressure 139/92, heart rate 91, repeat BP wnl with change in cuff size General: No acute distress, comfortable HEENT: Normal cephalic/atraumatic, PERRLA Cardiorespiratory: No increased effort Abdomen: Soft, nontender, gravid Extremities: Minimal edema Neurologic: No focal deficits, cranial nerves II through XII grossly intact Musculoskeletal: Moves all extremities Cervical exam: Closed per RN, -3 station heart rate:145/mod cristi/+accel/no decel [place]: q3-5 min Assessment/plan: 32-year-old G3, P2 at 34/0 weeks, RAQUEL 04/19/2023, presenting with contractions. ?Patient is ritesh, however cervix is closed. Patient comfortable in room. ? We will IV fluid hydrate with 1 L LR bolus. We will recheck cervix in about 2 hours. ?If patient make cervical change, would be for repeat section and bilateral salpingectomy. Desires tubal ligation. Reviewed contractions, labor signs.
[2023-03-08 19:46] VITALS: BP 128/78; PULSE 88
[2023-03-08 19:47] VITALS: BMI 44.3
[2023-03-08] MEDS: Lactated Ringers 1,000 ML 999 ML IV (20:45)
[2023-03-08 21:46] VITALS: BP 134/71; PULSE 78
== END 2023-03-08 22:05 | disposition home or self-care (01) ==
LOC: WPOUT 19:12 → WP 19:13
PROVIDERS: PCP Family Medicine; Visit Provider Student in an Organized Health Care Education/Training Program
DX: O47.03 False labor before 37 completed weeks of gestation, third trimester (principal); Z3A.34 34 weeks gestation of pregnancy; O99.213 Obesity complicating pregnancy, third trimester
CPT/HCPCS: 96360; 59025; 59050; 99221; J7120; G0378

== ENCOUNTER → 2023-03-22 | Outpatient (CLI) | payer OTHER, SELFPAY ==
[2023-03-22 14:52] LABS: Absolute Lymphocyte Count 2.03 X10^3/uL (0.83-4.51); Absolute Neutrophil Count 8.1 X10^3/uL (2.0-7.7); Basophil# 0.04 X10^3/uL; Basophil% 0.4 % (0-1); Eosinophil# 0.04 X10^3/uL; Eosinophils% 0.4 % (0-5); Hematocrit 35.5 % (37-47); Hemoglobin 11.1 g/dL (12.0-15.0); Lymphocyte # 2.03 X10^3/ul (0.83-4.51); Lymphocyte % 18.6 % (19-41); Mean Corp Hgb Conc 31.3 g/dL (32-36); Mean Corpuscular Hgb 25.3 pg (27.0-32.0); Mean Corpuscular Volume 80.9 fL (81-99); Mean Platelet Vol. 9.7 fl (6.2-12.0); Monocyte# 0.65 X10^3/uL; NRBC Flagged by Analyzer 0 % (0-5); Neutrophil # 8.07 X10^3/uL (2.7-7.7); Platelet Count 295 K/mm3 (150-450); RBC Distribution Width CV 13.5 % (11.6-14.6); RBC Distribution Width SD 39.4 fl (35.1-43.9); Red Blood Count 4.39 M/mm3 (4.2-5.4); White Blood Count 10.9 K/mm3 (4.4-11.0)
[2023-03-22 17:36] LABS: Syphilis Antibodies Non-reactive
== END | disposition home or self-care (01) ==
PROVIDERS: PCP Family Medicine; Visit Provider Obstetrics & Gynecology
DX: Z34.83 Encounter for supervision of other normal pregnancy, third trimester (principal); Z36.85 Encounter for antenatal screening for Streptococcus B
CPT/HCPCS: 36415; 85025; 86780; 87081

== ENCOUNTER 2023-04-02 17:50 | Outpatient (CLI) | payer OTHER, SELFPAY ==
[2023-04-02 18:05] VITALS: BP 132/80; PULSE 96; PULSE 99; TEMP 36.6; O2SAT 97
[2023-04-02 18:11] VITALS: BMI 45.4
--- NOTE | 2023-04-10 05:06 | PCM.PN.OB ---
Subjective Subjective Patient arrived on 04/02/2023 with contractions to rule out labor. Cervix was closed/thick/high. Patient reported contractions are spacing out. Offered recheck of cervix, patient declined. Patient discharged home with labor precautions. status was reassuring with reactive NST. Follow up in office routine. Objective Data Objective Data Vital Signs: Vital Signs Temp Pulse BP Pulse Ox 97.8 F 96 132/80 H 97 04/02/23 18:05 04/02/23 18:05 04/02/23 18:05 04/02/23 18:05 Weight: 102.115 kg Body Mass Index (BMI) 45.4
== END 2023-04-02 19:20 | disposition home or self-care (01) ==
LOC: WPOUT 17:55 → WP 17:56
PROVIDERS: PCP Family Medicine; Referring Provider Student in an Organized Health Care Education/Training Program; Visit Provider Student in an Organized Health Care Education/Training Program
DX: O47.9 False labor, unspecified (principal); Z3A.00 Weeks of gestation of pregnancy not specified
CPT/HCPCS: 59025; 59050

== ENCOUNTER 2023-04-12 09:10 | Inpatient (IN) | payer OTHER, SELFPAY ==
[2023-04-12] VITALS (15 sets, daily range): BP systolic 113–149; BP diastolic 65–99; PULSE 59–100; RESP 14–18; TEMP 35.9–37.1; O2SAT 97–100; BMI 46.0
[2023-04-12] MEDS: Lactated Ringers 1,000 ML 999 ML IV (10:10)
[2023-04-12 10:40] LABS: Absolute Lymphocyte Count 1.83 X10^3/uL (0.83-4.51); Absolute Neutrophil Count 5.5 X10^3/uL (2.0-7.7); Basophil# 0.05 X10^3/uL; Basophil% 0.6 % (0-1); Eosinophil# 0.04 X10^3/uL; Eosinophils% 0.5 % (0-5); Hematocrit 33.9 % (37-47); Hemoglobin 10.8 g/dL (12.0-15.0); Lymphocyte # 1.83 X10^3/ul (0.83-4.51); Lymphocyte % 22.9 % (19-41); Mean Corp Hgb Conc 31.9 g/dL (32-36); Mean Corpuscular Hgb 25.2 pg (27.0-32.0); Mean Platelet Vol. 9.5 fl (6.2-12.0); Monocyte# 0.51 X10^3/uL; Monocyte% 6.4 % (0-10); NRBC Flagged by Analyzer 0 % (0-5); Neutrophil # 5.51 X10^3/uL (2.7-7.7); Platelet Count 269 K/mm3 (150-450); RBC Distribution Width CV 13.9 % (11.6-14.6); RBC Distribution Width SD 39.7 fl (35.1-43.9); Red Blood Count 4.29 M/mm3 (4.2-5.4)
--- NOTE | 2023-04-12 10:58 | PCM.HP.BLA ---
History and Physical Date of Admission: 04/12/23 Chief complaint: Repeat section bilateral tubal ligation History present illness: 32-year-old G 3P2 at 39 weeks and 0 days with RAQUEL 04/19/2023 arrives for repeat section bilateral tubal ligation at term. denies headache, visual changes, chest pain, shortness of breath, nausea vomit, right upper quadrant pain. Patient states good movement. is complicated by hydronephrosis 9 mm, prominent aortic arch, breech presentation, BMI Obstetric history: G1: 39-week primary section female 7 pounds G2: 39-week repeat section male 7 pounds G3: Current Past medical history: None Medications: vitamin, Vistaril Allergies: Sulfa Past surgical history: section x2, arm surgery Social history: Denies smoking, alcohol use, drug use Family history: Denies his DVT or PE Review of systems: Besides above pertinent positives a full review of systems was performed and found to be negative Physical exam: Vitals: Pending General: Normal-appearing no acute distress HEENT: Normocephalic/atraumatic no cervical lymphadenopathy Cardiac/respiratory: No use of accessory muscles, nonlabored breathing Abdomen: Soft, nontender, gravid Extremities: No peripheral edema normal peripheral pulses Psych: Normal affect normal demeanor nonpressured speech Labs: White blood cell count 8.0 hemoglobin 10.8 hematocrit 33.9% platelets 269 Assessment and plan: 32-year-old at 30 weeks and 0 days for repeat section bilateral tubal ligation at term Admit labor and delivery CEFM Routine orders hydronephrosis and prominent aortic arch: Discussed case with die repairer forging and discussed MFM recommendations
[2023-04-12 11:12] LABS: Syphilis Antibodies Non-reactive
[2023-04-12] MEDS: Lactated Ringers 1,000 ML 150 ML IV (11:27)
[2023-04-12] MEDS: Sodium Citrate/Citric Acid 30 ML UDC PO (12:12)
[2023-04-12] MEDS: Acetaminophen 500 MG Tablet 1000 MG PO ×2 (12:13→18:42)
--- NOTE | 2023-04-12 12:58 | FALS_PTH ---
PATIENT: CARLOS SKY LOC: [facility] U#:[id number] AGE/SX: 32/F ROOM: WP005 RE04/12/[address]: Dr. Mauricio Alejo MD : 1990 BED: 1 DIS: 04/13/2023 SPEC #: [id number] RECD: 04/12/23 15:13 STATUS: CARMEN REQ #: [id number] BRIDGET: 04/12/23 12:[address]: Mauricio Alejo DEPT: SURGICAL PATHOLOGY RECD BY: hSi Zapata ENTERED: 04/13/23 10:15 SP TYPE: FALL TUBES OTHR DR: Dr. Niko Gilliam MD Tissues: Fallopian tube Procedures: Surgery Specimen Level II HEADER OPERATION: Tubal ligation PRE-OP DIAGNOSIS: Sterilization TISSUE SUBMITTED: Fallopian tubes, stitch in right tube MICROSCOPIC DIAGNOSIS Bilateral fallopian tubes, salpingectomy: Bilateral fallopian tubes, no pathologic diagnosis. SJ:latonia 04/17/2023 MICROSCOPIC DESCRIPTION Slides are reviewed. GROSS DESCRIPTION Received in fixative is one container labeled with the patient's name and designated bilateral fallopian tubes, stitch in right tube. The specimen consists of bilateral fallopian tubes including fimbrial ends. The right fallopian tube measures 6.5 cm in length and 0.7 cm in diameter and the left fallopian tube measures 9.0 cm in length and 0.6 cm in diameter. Sections reveal unremarkable cut surfaces. Light Coil Winder sections are submitted in two cassettes as follows: 1 ? right fallopian tube, 2 ? left fallopian tube. / SJ:latonia 04/13/2023 TC:4 CPT: 14037 x2
--- NOTE | 2023-04-12 13:31 | EX.PCM.OBRPT ---
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 Normal uterus, tubes, and ovaries. Moderate amount of adhesions. Consent: Patient with history of section desires permanent sterilization elects for repeat section Via Pfannenstiel incision and bilateral salpingectomy. Patient understands risk of the procedure include but are not limited to visceral or vascular injury, prolonged hospitalization, blood loss need for transfusion, reoperation. Patient state understanding and wished to proceed. All questions were answered and consent was signed. Procedure: Patient was brought back to the OR where spinal anesthesia found to be adequate. 3 g of Ancef were given for infection prophylaxis. Patient was prepared and draped in a supine position with leftward tilt. A Pfannenstiel incision was made at the skin with a scalpel. The incision carried down to the fascia with a scalpel. The fascia was excised and extended laterally. Inferior aspect of the fascia was grasped with a clamp and the underlying rectus and pyramidalis muscle were dissected off sharply with Quiles scissors. In similar fashion the superior aspect of the fascia was grasped with a clamp and the underlying rectus muscle was dissected off sharply. Rectus muscle was dissected at the midline down to the level of the pubic symphysis. Preperitoneal fatty tissue was entered sharply. Peritoneum was extended superiorly and inferiorly with good visualization of bladder. Bladder blade was inserted and vesicouterine peritoneum was identified. Low transverse hysterotomy was made. Hand was placed into the incision and the baby was delivered in standard breech fashion. Cord was clamped and cut. Baby was handed off to nursing. Placenta was delivered via manual extraction. IV oxytocin was initiated to facilitate uterine contractions. Uterus was exteriorized and wiped out with dry laparotomy sponge in order to remove remaining placental membranes. Uterus was closed in a continuous running fashion. Good hemostasis was noted. Right fallopian tube was identified at the fimbria, elevated with a Vancleve, and the mesosalpinx was cut and cauterized with a LigaSure device. Right fallopian tube was sent to pathology. Good hemostasis was noted. Left fallopian tube was identified to the fimbria, elevated with a Vancleve, mesosalpinx was cut and cauterized with LigaSure device. Left fallopian tube was sent to pathology. Good hemostasis was noted bilaterally. Uterus was placed back in the abdominal cavity and the hysterotomy incision and salpingectomy surgical sites were reinspected, good hemostasis was noted in all sites. Radha was placed over the hysterotomy. Good hemostasis was noted. Fascia was closed in a continuous running fashion with PDS suture. Subcutaneous irrigation was performed and good hemostasis was noted. Skin was closed in a subcuticular fashion. All counts were correct x2. Patient tolerated procedure well and was brought to recovery in stable condition.
[2023-04-12] MEDS: Oxytocin 15 Units/NS 250ml 15 UNITS/250 ML IV.SOLN 83 UNITS IV (13:50)
[2023-04-12] MEDS: Ketorolac 30 MG/ML Syringe IV ×2 (14:48→21:22)
[2023-04-12 15:14] LABS: Pathology Specimen OB SEE PATHOLOGY REPORT
[2023-04-12] MEDS: Lactated Ringers 1,000 ML 100 ML IV (17:24)
[2023-04-12] MEDS: HYDROmorphone 1 MG/ML Syringe IV ×2 (17:25→20:39)
--- NOTE | 2023-04-12 22:30 | NURSING ---
Pt was very painful and wanted to wait till pain was controlled due to not getting duramorph. Pt tolerated ambulation well.
[2023-04-13] MEDS: Acetaminophen 500 MG Tablet 1000 MG PO ×3 (00:42→14:05)
[2023-04-13] MEDS: Enoxaparin 40 MG/0.4 ML Syringe SC (02:12)
[2023-04-13] MEDS: HYDROmorphone 1 MG/ML Syringe IV (02:12)
[2023-04-13] MEDS: Ketorolac 30 MG/ML Syringe IV ×2 (03:32→09:11)
[2023-04-13] MEDS: 0.9% Saline Lock 10 ML Syringe IV ×2 (03:32→09:11)
[2023-04-13 03:36] VITALS: BP 106/79; PULSE 82; RESP 15; TEMP 36.1; O2SAT 99
[2023-04-13 06:24] LABS: Hematocrit 26.6 % (37-47); Hemoglobin 8.1 g/dL (12.0-15.0); Mean Corp Hgb Conc 30.5 g/dL (32-36); Mean Corpuscular Hgb 24.8 pg (27.0-32.0); Mean Corpuscular Volume 81.3 fL (81-99); Mean Platelet Vol. 9.4 fl (6.2-12.0); Platelet Count 206 K/mm3 (150-450); RBC Distribution Width CV 13.8 % (11.6-14.6); RBC Distribution Width SD 40.6 fl (35.1-43.9); Red Blood Count 3.27 M/mm3 (4.2-5.4); White Blood Count 9.3 K/mm3 (4.4-11.0)
--- NOTE | 2023-04-13 08:43 | DCINST_ITS ---
Discharge Instructions Diet Discharge Diet: No restrictions Activity Discharge Activity: Return to Normal Activity, May Drive, May Shower and - (No tub baths for 2 weeks) May resume sexual activity in: 4-6 weeks Lifting Restrictions: No lifting over 25 pounds for 2 to 3 weeks Dressing / Incision Call your doctor if your incision/area has: Continuous Slow Oozing and Foul Smelling Discharge Call your doctor if you observe: Fever of 101 or Higher, Shortness of breath and Chest pain Follow Up Care Please Follow Up With: Mauricio Alejo MD When: 2 weeks postoperatively Test Results: Test results from this visit will be discussed in further detail at your follow- up appointment, if applicable. Discharge Plan Admission Admit Date/Time: 04/12/23 09:10 Attending Provider: Mauricio Alejo Primary Care Provider: Niko Gilliam Discharge Orders/Prescriptions Prescriptions: No Action diphenhydramine HCl [Unisom SleepGels] 50 mg Capsule Pepcid Prena-Tab Referrals / Follow Up: Niko Gilliam MD [Primary Care Provider] - Disposition Discharge Orders: Discharge Patient (Routine); Ordered 04/13/23 Ordered By: Dr. Mauricio Alejo
--- NOTE | 2023-04-13 08:43 | PCM.PN.OB ---
Subjective Subjective No overnight complaints. Pain well controlled. Objective Data Objective Data Vital Signs: Vital Signs Temp Pulse Resp BP Pulse Ox O2 Del Method 97.0 F L 82 15 106/79 99 Room Air 04/13/23 03:36 04/13/23 03:36 04/13/23 03:36 04/13/23 03:36 04/13/23 03:36 04/13/23 03:36 Oxygen Delivery Method Room Air Weight: 227 lb 15.327 oz Body Mass Index (BMI) 46.0 Intake & Output: Intake and Output for Last 24 Hours 04/11/23 04/12/23 04/13/23 23:59 23:59 23:59 Intake Total 2137.5 / 2137.5 911.67 / 911.67 Output Total 1000 / 1000 400 / 400 Balance 1137.5 / 1137.5 511.67 / 511.67 Lab / Micro Data Result Diagrams: 04/13/23 06:10 Labs: Laboratory Results - last 24 hr 04/12/23 10:10: WBC 8.0, RBC 4.29, Hgb 10.8 L, Hct 33.9 L, MCV 79.0 L, MCH 25.2 L, MCHC 31.9 L, RDW Std Deviation 39.7, RDW Coeff of Amor 13.9, Plt Count 269, MPV 9.5, Immature Gran % (Auto) 0.600, Neut % (Auto) 69.0, Lymph % (Auto) 22.9, Collier % (Auto) 6.4, Eos % (Auto) 0.5, Baso % (Auto) 0.6, Absolute Neuts (auto) 5.5, Absolute Lymphs (auto) 1.83, Nucleated RBC % 0 04/12/23 10:10: Blood Type O POSITIVE, Antibody Screen NEGATIVE 04/12/23 10:10: Syphilis Total Ab Non-reactive 04/13/23 06:10: WBC 9.3, RBC 3.27 L, Hgb 8.1 L, Hct 26.6 L, MCV 81.3, MCH 24.8 L, MCHC 30.5 L, RDW Std Deviation 40.6, RDW Coeff of Amor 13.8, Plt Count 206, MPV 9.4 Physical Exam Const alert, oriented x3, no apparent distress, average body habitus, healthy appearing and well nourished HEENT normocephalic and moist oral mucous membranes Eyes PERRL Neck full ROM Resp normal respiratory effort, no retractions and no use of accessory muscles GI GI Narrative: Soft, nontender, bandage clean dry and intact fundus firm and below umbilicus Extremity normal to inspection, full ROM and no clubbing, cyanosis or edema Neuro moves all extremities and no focal motor deficits Psych mental status grossly normal, affect normal, speech normal and activity/motor behavior normal Assessment & Plan (1) delivery delivered: PLAN: Postop day 1 status post repeat section bilateral tubal ligation at term. Breast-feeding. Pain well controlled. Okay to discharge home if okay with accounting office manager
[2023-04-13 08:55] VITALS: BP 105/65; PULSE 93; RESP 16; TEMP 36.6; O2SAT 97
[2023-04-13] MEDS: Senna/Docusate Sodium 1 Tablet PO (10:25)
[2023-04-13] MEDS: oxyCODONE 5 MG Tablet PO ×2 (10:45→17:03)
[2023-04-13 13:34] VITALS: BP 110/69; PULSE 87; RESP 16; TEMP 36.4; O2SAT 97
[2023-04-13] MEDS: Ibuprofen 600 MG Tablet PO (15:50)
--- NOTE | 2023-04-17 14:04 | NURSING ---
Follow up phone call performed: Feeling good overall, still having some right side hip pain. Encouraged to call doctor if not improving. has been nursing well. Denies questions or concerns. Had a great experience at .
== END 2023-04-13 17:35 | disposition home or self-care (01) | DRG 784 ==
PROVIDERS: Admitting Provider Obstetrics & Gynecology; PCP Family Medicine; Referring Provider Obstetrics & Gynecology; Visit Provider Obstetrics & Gynecology
PROC: 0UT70ZZ Resection of Bilateral Fallopian Tubes, Open Approach (ICD-10-PCS; CPT 59514; principal; 2023-04-12 11:45)
DX: O32.1XX0 Maternal care for breech presentation, not applicable or unspecified (principal); Q25.21 Interruption of aortic arch; O34.211 Maternal care for low transverse scar from previous cesarean delivery; Z37.0 Single live birth; Z3A.39 39 weeks gestation of pregnancy; Z30.2 Encounter for sterilization; O99.892 Other specified diseases and conditions complicating childbirth
CPT/HCPCS: 59050; 85025; 85027; 86780; 86850; 86900; 86901; 88302; 99221; J7120; A4216; G0378; J2405